=== PATIENT | female | born 1955 | race Caucasian/White ===

== ENCOUNTER 2022-07-18 10:16 | Inpatient (IN) | payer MEDICARE, SELFPAY ==
[2022-07-18] VITALS (22 sets, daily range): BP systolic 162–250; BP diastolic 109–150; PULSE 60–92; RESP 11–22; TEMP 36.6–37.1; O2SAT 95–99; BMI 33.2; BMI 27.1
--- NOTE | 2022-07-18 10:45 | ED.NURSE ---
Patient helped to bathroom. Is only bearing partial weight and is unable to move legs in right direction to make steps. Patient left arm unable to grab on gram bar on first try as patient aims to low. MD notified. Woke with symptoms at 6:45 AM.
--- NOTE | 2022-07-18 11:00 | CRLHL7_ITS ---
For Patients: As a result of the Century Cures Act, medical imaging exams and procedure reports are released immediately into your electronic medical record. You may view this report before your referring provider. If you have questions, please contact your health care provider. INDICATION: Left-sided weakness COMPARISON: None TECHNIQUE: CT examination of the head was performed as axial sections without intravenous contrast. Images were obtained from the vertex of the skull through the skull base. Please note that all CT scans at this facility use dose modulation, iterative reconstruction, and/or weight-based dosing when appropriate to reduce radiation dose to as low as reasonably achievable. FINDINGS: The brain shows no sign of mass lesion, mass effect, hemorrhage, or edema. There are involutional changes. There is moderate cortical atrophy and there is moderate white matter disease. There is no hydrocephalus. The visualized portions of the orbits are normal in appearance. Scattered lytic intra diploic lesions are identified. This could be related to a malignant process such as multiple myeloma. Follow-up evaluation is recommended in the not acute care setting. IMPRESSION: Involutional changes consisting of atrophy and white matter disease. Scattered lytic intra diploic calvarial lesions. This raises the possibility of a malignant process such is multiple myeloma. Follow-up in the nonacute care setting is recommended. From an imaging perspective, these could be further studied by MRI. Please note that all CT scans at this facility use dose modulation, iterative reconstruction, and/or weight-based dosing when appropriate to reduce radiation dose to as low as reasonably achievable. Dictated by Nikolay Vega MD @ 07/18/2022 12:19:56 PM (Electronically Signed)
--- NOTE | 2022-07-18 11:05 | ED_ITS ---
HPI - Neuro Symptoms/Deficit General Chief Complaint: Neuro Symptoms/Altered Deficit Stated Complaint: Left leg,left arm pain,Hypertension Time Seen by Provider: 07/18/22 10:51 History of Present Illness HPI Narrative: This 67-year-old female comes in by ambulance because of left-sided weakness. She states that she felt normal last night when she went to bed. She did get up at about 3 in the morning and states that she had difficulty walking at that time. She was unable to get up and ambulate without help this morning. She does not report a headache. She states that she has not been to a doctor for approximately 35 years. Her significant other present with her states that she was apparently supposed to be on some antihypertensive medicines. The patient states that she does not like to take any medicine. She arrives with significant hypertension and a blood pressure of 241/150. At the time of my visit in her room a few minutes later her systolic blood pressure decreased to 215. Related Data Home Medications Medication Instructions Recorded Confirmed No Known Home Medications 07/18/22 07/18/22 Allergies Allergy/AdvReac Type Severity Reaction Status Date / Time No Known Drug Allergies Allergy Verified 07/18/22 10:39 Review of Systems Status of ROS: Reports: 10 or more systems reviewed and unremarkable except as noted in History and below Narrative: Constitutional: No fevers, no weight gain or loss. Eyes: No discharge. No vision changes. HENT: No congestion, no sore throat, no ear pain. Cardiovascular: No chest pain, no palpitations. Respiratory: No shortness of breath, no wheezes, no cough. Gastrointestinal: No abdominal pain, no vomiting, no diarrhea. Genitourinary: No dysuria, no hematuria. Musculoskeletal: Normal range of motion. Skin: No rashes, no pruritis. Neurological: No dizziness, sensory change, or speech change. Left-sided weakness. Endo/Heme/Allergies: No bruising or bleeding. No polydipsia. Pysch: no suicidality, no anxiety, no insomnia. All other systems reviewed and are negative. [facility] Medical History (Updated 07/18/22 @ 14:07 by Esteban Davis MD) No significant past medical history Surgical History (Updated 07/18/22 @ 12:53 by Mayra Uriarte RN) No significant past surgical history Social History Smoking Status: Never smoker Do you use any of these nicotine containing products: None How often do you have a drink containing alcohol: never How often do you have six or more drinks on one occasion: Never AUDIT-C Alcohol total score: 0 Non-prescribed substance use: denies use Exam Narrative: Exam Narrative: Constitutional: Well-developed, well-nourished, no acute distress. HEENT: Normocephalic, atraumatic. Neck: Normal range of motion. Nontender. Supple. Heart: Regular. No murmurs. Normal rate. Intact distal pulses. Lungs: Clear to auscultation. No chest discomfort. No wheezes, rhonchi, or rales. Abdomen: Normal bowel sounds. Nontender. No rebound tenderness. Genitalia: Deferred. Back: No midline tenderness. Normal range of motion. Extremities: Normal range of motion. No injury. Skin: Intact. No rash. Warm. No erythema or pallor. Neurologic: Alert and oriented. Left-sided facial droop. Tongue deviates to the left. 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 Pronator drift is positive. She is able to raise her right leg from the bed normally but has significant difficulty raising her left leg up. Psychiatric: No suicidality. No anxiety or depression. No insomnia. Nursing notes and vitals signs are reviewed. Const: Vital Signs, click to edit/add: Vital Signs - 24 hr 07/18/22 10:39 07/18/22 10:37 07/18/22 10:45 Temperature 97.9 F Pulse Rate [Pulse Oximeter] 73 86 73 Respiratory Rate 16 14 19 Blood Pressure [Le ft Upper Arm] 241/150 H 232/131 H 215/125 H Pulse Oximetry 96 96 96 Oxygen Delivery Me thod Room Air 07/18/22 11:00 07/18/22 11:25 07/18/22 11:45 Temperature Pulse Rate [Pulse Oximeter] 79 73 Respiratory Rate 19 12 Blood Pressure [Le ft Upper Arm] 197/121 H 197/134 H 224/147 H Pulse Oximetry 96 Oxygen Delivery Me thod Course Vital Signs Vital signs: Initial Vital Signs Pulse Rate 86 07/18/22 10:37 Respiratory Rate 14 07/18/22 10:37 Blood Pressure 232/131 H 07/18/22 10:37 Blood Pressure Mean 164 07/18/22 10:37 Pulse Oximetry 96 07/18/22 10:37 Vital Signs Pulse Rate 86 07/18/22 10:37 Respiratory Rate 14 07/18/22 10:37 Blood Pressure 232/131 H 07/18/22 10:37 Pulse Oximetry 96 07/18/22 10:37 Temperature 97.9 F 07/18/22 10:39 Pulse Rate 73 07/18/22 11:45 Respiratory Rate 12 07/18/22 11:45 Blood Pressure 224/147 H 07/18/22 11:45 Pulse Oximetry 96 07/18/22 11:00 Oxygen Delivery Method 07/18/22 10:39 MDM - Neuro Symptoms/Deficit MDM Narrative Medical decision making narrative: This patient comes in with stroke-like symptoms that began sometime during the night apparently. Her last known well was last evening before going to bed. She arrives with left-sided weakness, pronator drift, her tongue is deviating to the left, and decreased ability to ambulate. An IV was established and labs were drawn. These returned with a remarkable increased level of calcium at 12.5. CT scan of the head without contrast shows some findings that may be suspicious for metastatic condition including multiple myeloma. This patient is outside of the window of time where thrombolytics could be given. I did arrange an MRI of her head for further evaluation. Additionally there is labs pending that can give some more insight. A bed has become available here fortunately. I spoke with Dr. Barreto who is making arrangements for her admission into the hospital for further evaluation and treatment. Lab Data Labs: Lab Results 07/18/22 07/18/22 07/18/22 Range/Units 11:20 11:20 11:30 WBC (4.50-11.00) K/uL RBC (4.00-5.20) m/uL Hgb (12.0-16.0) gm/dL Hct (33.0-51.0) % MCV (80-100) fL MCH (26-34) pg MCHC (32-36) gm/dL RDW Coeff of Christine (11.5-15.5) % Plt Count (140-440) K/uL Neut % (Auto) (42.0-72.0) % Lymph % (Auto) (20-44) % [place] % (Auto) (0.0-11.0) % Eos % (Auto) (0.0-7.0) % Baso % (Auto) (0.0-3.0) % Neut # (Auto) (1.7-7.0) K/uL Lymph # (Auto) (0.90-2.90) K/uL [place] # (Auto) (0.00-0.90) K/UL Eos # (Auto) (0.00-0.50) K/uL Baso # (Auto) (0.00-0.30) K/uL Abs Immat Gran (auto) (0.00-0.30) K/uL INR (0.91-1.10) Sodium (135-149) mmol/L Potassium (3.6-5.1) mmol/L Chloride (96-114) mmol/L Carbon Dioxide (20-32) mmol/L BUN (7-30) mg/dL Creatinine (0.5-1.5) mg/dL Estimated Creat Clear Estimated GFR ml/min Glucose (60-115) mg/dL Calcium (8.4-10.6) mg/dL Total Bilirubin (0.1-1.5) mg/dL Direct Bilirubin (0.0-0.5) mg/dL AST (12-35) U/L ALT (4-35) U/L Alkaline Phosphatase (40-150) U/L Total Protein (6.0-8.3) g/dL Albumin (3.3-5.0) g/dL Urine Color Yellow (Yellow) Urine Appearance Clear (Clear) Urine pH 8.0 (5.0-8.5) Ur Specific [place] 1.015 (1.000-1.030) Urine Protein Negative (Negative) Urine Glucose (UA) Negative (Negative) Urine Ketones Negative (Negative) Urine Blood Negative (Negative) Urine Nitrite Negative (Negative) Urine Bilirubin Negative (Negative) Urine Urobilinogen 0.2 (0.2-1.0) Ur Leukocyte Esterase Negative (Negative) Urine RBC Cancelled Urine WBC Cancelled Urine WBC Clumps Cancelled Ur Squamous Epith Cells Cancelled [place] Biurate Crystals Cancelled Calcium Carbonate Cryst Cancelled Calcium Phosphate Cryst Cancelled Calcium Oxalate Crystal Cancelled Cystine Crystals Cancelled Uric Acid Crystals Cancelled Triple Phos Crystals Cancelled Sulfur Crystals Cancelled Cholesterol Crystals Cancelled Tyrosine Crystals Cancelled Hippuric Acid Crystals Cancelled Amorphous Sediment Cancelled Other Sediment Cancelled Urine Bacteria Cancelled Fatty Casts Cancelled Hyaline Casts Cancelled Fine Granular Casts Cancelled Coarse Granular Casts Cancelled Waxy Casts Cancelled RBC Casts Cancelled WBC Casts Cancelled Other Casts Cancelled Urine Starch Cancelled Urine Mucus Cancelled Urine Trichomonas Cancelled Urine Yeast Cancelled SARS-CoV-2 (PCR) Negative SARS-CoV-2 (Negative) 07/18/22 07/18/22 07/18/22 Range/Units 11:34 11:34 11:34 WBC 6.69 (4.50-11.00) K/uL RBC 5.05 (4.00-5.20) m/uL Hgb 13.1 (12.0-16.0) gm/dL Hct 41.2 (33.0-51.0) % MCV 82 (80-100) fL MCH 26 (26-34) pg MCHC 32 (32-36) gm/dL RDW Coeff of Christine 14.8 (11.5-15.5) % Plt Count 280 (140-440) K/uL Neut % (Auto) 79.6 H (42.0-72.0) % Lymph % (Auto) 13.8 L (20-44) % [place] % (Auto) 5.4 (0.0-11.0) % Eos % (Auto) 0.4 (0.0-7.0) % Baso % (Auto) 0.7 (0.0-3.0) % Neut # (Auto) 5.30 (1.7-7.0) K/uL Lymph # (Auto) 0.90 (0.90-2.90) K/uL [place] # (Auto) 0.40 (0.00-0.90) K/UL Eos # (Auto) 0.03 (0.00-0.50) K/uL Baso # (Auto) 0.05 (0.00-0.30) K/uL Abs Immat Gran (auto) 0.01 (0.00-0.30) K/uL INR 0.92 (0.91-1.10) Sodium 139 (135-149) mmol/L Potassium 3.8 (3.6-5.1) mmol/L Chloride 105 (96-114) mmol/L Carbon Dioxide 25 (20-32) mmol/L BUN 12 (7-30) mg/dL Creatinine 1.1 (0.5-1.5) mg/dL Estimated Creat Clear 35.65 Estimated GFR 55 ml/min Glucose 106 (60-115) mg/dL Calcium 12.5 H* (8.4-10.6) mg/dL Total Bilirubin 0.8 (0.1-1.5) mg/dL Direct Bilirubin 0.2 (0.0-0.5) mg/dL AST 61 H (12-35) U/L ALT 53 H (4-35) U/L Alkaline Phosphatase 218 H (40-150) U/L Total Protein 8.4 H (6.0-8.3) g/dL Albumin 4.8 (3.3-5.0) g/dL Urine Color (Yellow) Urine Appearance (Clear) Urine pH (5.0-8.5) Ur Specific [place] (1.000-1.030) Urine Protein (Negative) Urine Glucose (UA) (Negative) Urine Ketones (Negative) Urine Blood (Negative) Urine Nitrite (Negative) Urine Bilirubin (Negative) Urine Urobilinogen (0.2-1.0) Ur Leukocyte Esterase (Negative) Urine RBC Urine WBC Urine WBC Clumps Ur Squamous Epith Cells [place] Biurate Crystals Calcium Carbonate Cryst Calcium Phosphate Cryst Calcium Oxalate Crystal Cystine Crystals Uric Acid Crystals Triple Phos Crystals Sulfur Crystals Cholesterol Crystals Tyrosine Crystals Hippuric Acid Crystals Amorphous Sediment Other Sediment Urine Bacteria Fatty Casts Hyaline Casts Fine Granular Casts Coarse Granular Casts Waxy Casts RBC Casts WBC Casts Other Casts Urine Starch Urine Mucus Urine Trichomonas Urine Yeast SARS-CoV-2 (PCR) (Negative) Imaging Data CT scan - head: Radiologist's impression: Involutional changes consisting of atrophy and white matter disease. Scattered lytic intra diploic calvarial lesions. This raises the possibility of a malignant process such is multiple myeloma. Follow-up in the nonacute care setting is recommended. From an imaging perspective, these could be further studied by MRI. Critical Care Time Critical Care Time Critical Care Time: Yes Attestation: The patient required my highest level preparedness to intervene emergently and I personally spent this critical care time directly and personally managing the patient. This critical care time included: Obtaining a history; Examining the patient; Pulse oximetry; Ordering and reviewing of studies; Arranging urgent treatment with development of a management plan; Evaluation of patients response to treatment; Frequent reassessment discussions with other providers. This critical care time was performed to assess and manage the high probability of imminent life-threatening deterioration that could result in multiorgan failure. It was exclusive of separate billable procedures and treating other patients and teaching time. Total Critical Care Time in Minutes: 45 Discharge Plan Discharge Clinical Impression: Cerebrovascular accident, Serum calcium elevated Patient Disposition: Admitted As Inpatient Condition: Unchanged Prescriptions: No Action No Known Home Medications Follow Up/Referrals: Provider,Not a Local [Primary Care Provider] -
[2022-07-18 11:53] LABS: Basophils Absolute Auto 0.05 K/uL (0.00-0.30); Basophils Percent Auto 0.7 % (0.0-3.0); Eosinophils Absolute Auto 0.03 K/uL (0.00-0.50); Eosinophils Percent Auto 0.4 % (0.0-7.0); Hematocrit 41.2 % (33.0-51.0); Hemoglobin* 13.1 gm/dL (12.0-16.0); Immature Granulocytes Abs Auto 0.01 K/uL (0.00-0.30); Lymphocytes Percent Auto 13.8 % (20-44); Mean Corpuscular HGB Conc 32 gm/dL (32-36); Mean Corpuscular Hemoglobin 26 pg (26-34); Mean Corpuscular Volume 82 fL (80-100); Monocytes Percent Auto 5.4 % (0.0-11.0); Neutrophils Percent Auto 79.6 % (42.0-72.0); Platelet Count* 280 K/uL (140-440); RDW Coefficient of Variation % 14.8 % (11.5-15.5); Red Blood Count 5.05 m/uL (4.00-5.20); White Blood Count* 6.69 K/uL (4.50-11.00)
[2022-07-18 11:55] LABS: Appearance Urine Clear (Clear); Bilirubin Urine Negative (Negative); Blood Urine Negative (Negative); Color Urine Yellow (Yellow); Glucose Urine Negative (Negative); Ketones Urine Negative (Negative); Leukocyte Esterase Urine Negative (Negative); Nitrite Urine Negative (Negative); Protein Urine Negative (Negative); Specific Gravity Urine 1.015 (1.000-1.030); Urobilinogen Urine 0.2 (0.2-1.0)
[2022-07-18 11:58] LABS: Slide Review Reflex No
[2022-07-18 12:10] LABS: Albumin* 4.8 g/dL (3.3-5.0); Chloride* 105 mmol/L (96-114); Potassium* 3.8 mmol/L (3.6-5.1); Sodium* 139 mmol/L (135-149)
[2022-07-18 12:11] LABS: INR 0.92 (0.91-1.10); Prothrombin Time 12.7 Seconds
[2022-07-18 12:12] LABS: Creatinine* 1.1 mg/dL (0.5-1.5); Est. Creatinine Clearance* 35.65; Estimated Glomerular Filt Rate 55 ml/min
[2022-07-18 12:13] LABS: Alanine Aminotransferase* 53 U/L (4-35); Alkaline Phosphatase* 218 U/L (40-150); Aspartate Amino Transferase* 61 U/L (12-35); Bilirubin Direct* 0.2 mg/dL (0.0-0.5); Bilirubin Total* 0.8 mg/dL (0.1-1.5); Blood Urea Nitrogen* 12 mg/dL (7-30); Carbon Dioxide* 25 mmol/L (20-32); Glucose* 106 mg/dL (60-115); Total Protein* 8.4 g/dL (6.0-8.3)
[2022-07-18 12:23] LABS: Calcium* 12.5 mg/dL (8.4-10.6)
[2022-07-18 12:25] LABS: SARS PCR* Negative SARS-CoV-2 (Negative)
--- NOTE | 2022-07-18 12:41 | ED.NURSE ---
Critical lab: Calcium 12.5 handed to at 1237
--- NOTE | 2022-07-18 12:50 | CRLHL7_ITS ---
For Patients: As a result of the Century Cures Act, medical imaging exams and procedure reports are released immediately into your electronic medical record. You may view this report before your referring provider. If you have questions, please contact your health care provider. Indication: Left hemiparesis. Technique: Multiplanar, multisequence MRI of the brain was performed without and with intravenous contrast. Contrast: 15 cc Dotarem Comparison: CT head earlier the same day Findings: [id number] thinning of the corpus callosum. The pituitary gland and carpus appear intact. Mild degenerative change visualized upper cervical spine. There is a 13 mm zone of restricted diffusion identified within the right thalamus. There is slight T2 FLAIR hyperintensity in this region. The ventricles are proportionate to the cerebral sulci. The 4th ventricle appears midline. The basal cisterns appear patent. No abnormal extra-axial fluid collection identified. Moderate parenchymal volume loss. Moderate T2 FLAIR hyperintense foci within the subcortical and periventricular white matter, favored to represent chronic ischemic microvascular disease. There is no intracranial mass, abnormal mass-effect or midline shift identified. No abnormal enhancement. Major intracranial vascular flow voids appear grossly intact. Both globes are preserved. Subtle visualization of enhancing calvarial lesions corresponding to the lytic foci noted on prior CT of the head. Impression: 1. Hyperacute to acute right thalamic infarct. 2. Enhancement corresponding to lytic lesions identified on CT of the head. Overall features are concerning for malignant process such as multiple myeloma versus calvarial metastases. 3. Moderate chronic ischemic microvascular disease. The above findings were communicated over the telephone with Dr. Esteban Davis by Dr. Alejandro at 1533 hours on 07/18/2022. Dictated by Akbar Alejandro MD @ 07/18/2022 3:42:13 PM (Electronically Signed)
--- NOTE | 2022-07-18 13:59 | P.IMHP_ITS ---
Hospitalist- H&P: HPI History of Present Illness Date Seen: 07/18/22 Chief complaint: Left leg,left arm pain,Hypertension Narrative: Sharon Hallman is a 67 year old female who presented to the ER with her for L sided weakness. She woke up around 6:45 this morning and couldn't move her L leg. She was able to get up, then noted that her L arm was also weak. She had no other associated symptoms. Given weakness, she called her home from work, who noted that she also had a L facial droop and brought her to the ED. Last known well was when going to bed overnight. ER Course and Findings: - Abnormal CT of head with scattered lytic intra diploic calvarial lesions - Hypercalcemia - Elevated AST/ALT/Alk phojalil Herrera hasn't seen a physician since the of her last child in 1984. She takes a multivitamin and a B Complex. She is unaware of her baseline BP. Mother from COPD, also had HTN. One of Sharon's daughters has HTN. Lives independently with Yoandy (medical decision maker if needed) in [place]. Three adult children. 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 Nonsmoker, no ETOH use. Review of Systems Status of ROS: Reports: 10 or more systems reviewed and unremarkable except as noted in History and below Narrative: Mild headache today. No CP, no dyspnea, no rashes or other skin concerns. No GI or complaints. Intermittent low back pain without sciatica, not constant and not severe. Has one raised mole on R labia, one on abdomen. [facility] Medical History (Updated 07/18/22 @ 20:40 by Felicia Barreto MD) No significant past medical history Surgical History (Updated 07/18/22 @ 12:53 by Mayra Uriarte RN) No significant past surgical history Social History Highest level of school completed/degree received: some college, no degree Smoking Status: Never smoker Do you use any of these nicotine containing products: None How often do you have a drink containing alcohol: never How often do you have six or more drinks on one occasion: Never AUDIT-C Alcohol total score: 0 Non-prescribed substance use: denies use Caffeine: Yes (tea) service: No Meds Home Medications and Allergies Home Medications Medication Instructions Recorded Confirmed Type vbuanmdnoajh-fxkwreee-znabte 1 tab PO DAILY 07/18/22 07/18/22 History tablet (Multivitamin 50 Plus tablet) vitamin B complex (Vitamins B 1 tab PO DAILY 07/18/22 07/18/22 History Complex tablet) Home Medication Comments: Patient takes an OTC Vitamin Complex for women over 50, and a B complex Allergies Allergy/AdvReac Type Severity Reaction Status Date / Time No Known Drug Allergies Allergy Verified 07/18/22 16:33 Exam Narrative: Exam Narrative: GEN: Alert and oriented, no significant dysarthria HEENT: Normal external ears, EOMIs bilaterally, no scleral icterus CV: RRR, No concerning murmurs, rubs, or gallops R: LCTA bilaterally without concerning wheezing, rales, or rhonchi Ext: wwp, no concerning edema Skin: Raised, hyperpigmented lesion on R labia, approximately 1cm in greatest diameter. Smaller lesion on abdomen (raised, waxy) measuring approximately 8mm. No skin lesions on back Neuro: L-sided facial droop, weakness LUE and LLE but able to move both. + L sided pronator drift. Psych: Appropriate Const: Vital Signs, click to edit/add: Vital Signs - 24 hr 07/18/22 10:39 07/18/22 10:37 07/18/22 10:45 Temperature 97.9 F Pulse Rate [Pulse Oximeter] 73 86 73 Respiratory Rate 16 14 19 Blood Pressure [Le ft Upper Arm] 241/150 H 232/131 H 215/125 H Pulse Oximetry 96 96 96 Oxygen Delivery Me thod Room Air 07/18/22 11:00 07/18/22 11:25 07/18/22 11:45 Temperature Pulse Rate [Pulse Oximeter] 79 73 Respiratory Rate 19 12 Blood Pressure [Le ft Upper Arm] 197/121 H 197/134 H 224/147 H Pulse Oximetry 96 Oxygen Delivery Me thod Hospitalist - H&P: Result Labs Labs: Short CBC 07/18/22 Range/Units 11:34 WBC 6.69 (4.50-11.00) K/uL Hgb 13.1 (12.0-16.0) gm/dL Hct 41.2 (33.0-51.0) % Plt Count 280 (140-440) K/uL BMP 07/18/22 11:34 Sodium 139 Potassium 3.8 Chloride 105 Carbon Dioxide 25 BUN 12 Creatinine 1.1 Glucose 106 Calcium 12.5 H* Liver Function 07/18/22 Range/Units 11:34 Total Bilirubin 0.8 (0.1-1.5) mg/dL Direct Bilirubin 0.2 (0.0-0.5) mg/dL AST 61 H (12-35) U/L ALT 53 H (4-35) U/L Alkaline Phosphatase 218 H (40-150) U/L Albumin 4.8 (3.3-5.0) g/dL Urine 07/18/22 Range/Units 11:20 Urine Color Yellow (Yellow) Urine Appearance Clear (Clear) Urine pH 8.0 (5.0-8.5) Ur Specific [place] 1.015 (1.000-1.030) Urine Protein Negative (Negative) Urine Glucose (UA) Negative (Negative) cc: Esteban Davis M.D.; Provider,Not a Local ~ For Patients:? As a result of the Cures Act, medical imaging exams and procedure reports are released immediately into your electronic medical record.? You may view this report before your referring provider.? If you have questions, please contact your health care provider. INDICATION: Left-sided weakness COMPARISON: None TECHNIQUE: CT examination of the head was performed as axial sections without intravenous contrast. Images were obtained from the vertex of the skull through the skull base. Please note that all CT scans at this facility use dose modulation, iterative reconstruction, and/or weight-based dosing when appropriate to reduce radiation dose to as low as reasonably achievable. FINDINGS: The brain shows no sign of mass lesion, mass effect, hemorrhage, or edema. There are involutional changes. There is moderate cortical atrophy and there is moderate white matter disease. There is no hydrocephalus. The visualized portions of the orbits are normal in appearance. Scattered lytic intra diploic lesions are identified. This could be related to a malignant process such as multiple myeloma. Follow-up evaluation is recommended in the not acute care setting. IMPRESSION: Involutional changes consisting of atrophy and white matter disease. Scattered lytic intra diploic calvarial lesions. This raises the possibility of a malignant process such is multiple myeloma. Follow-up in the nonacute care setting is recommended. From an imaging perspective, these could be further studied by MRI. Please note that all CT scans at this facility use dose modulation, iterative reconstruction, and/or weight-based dosing when appropriate to reduce radiation dose to as low as reasonably achievable. Dictated by Nikolay Vega MD @ 07/18/2022 12:19:56 PM Indication: Left hemiparesis. Technique: Multiplanar, multisequence MRI of the brain was performed without and with intravenous contrast. Contrast: 15 cc Dotarem Comparison: CT head earlier the same day Findings: Ymxz-us-alozjvbk thinning of the corpus callosum. The pituitary gland and carpus appear intact. Mild degenerative change visualized upper cervical spine. There is a 13 mm zone of restricted diffusion identified within the right thalamus. There is slight T2 FLAIR hyperintensity in this region. The ventricles are proportionate to the cerebral sulci. The 4th ventricle appears midline. The basal cisterns appear patent. No abnormal extra-axial fluid collection identified. Moderate parenchymal volume loss. Moderate T2 FLAIR hyperintense foci within the subcortical and periventricular white matter, favored to represent chronic ischemic microvascular disease. There is no intracranial mass, abnormal mass-effect or midline shift identified. No abnormal enhancement. Major intracranial vascular flow voids appear grossly intact. Both globes are preserved. Subtle visualization of enhancing calvarial lesions corresponding to the lytic foci noted on prior CT of the head. Impression: 1. Hyperacute to acute right thalamic infarct. 2. Enhancement corresponding to lytic lesions identified on CT of the head. Overall features are concerning for malignant process such as multiple myeloma versus calvarial metastases. 3. Moderate chronic ischemic microvascular disease. The above findings were communicated over the telephone with Dr. Esteban Davis by Dr. Alejandro at 1533 hours on 07/18/2022. Dictated by Akbar Alejandro MD @ 07/18/2022 3:42:13 PM Assessment and Plan Assessment and plan (1) Cerebrovascular accident: Problem comment: Reviewed case with Dr. Sánchez ([facility]) on 07/18 who recommends 3 weeks of dual antiplatelet therapy with Plavix and 81 mg aspirin, followed by 81mg daily aspirin alone. Status: Acute Assessment and Plan: Patient amenable to dual antiplatelet therapy as recommended by neurologist. She is also willing to trial a statin during her stay. We will allow permissive hypertension, treat blood pressures> 180 systolic. TTE tomorrow. (2) Thalamic infarction: Status: Acute Assessment and Plan: Per above (3) Hypercalcemia: Status: Acute Assessment and Plan: Concerning for underlying malignancy or (less likely) another chronic disease process. (4) Metastatic cancer: Problem comment: Unknown primary (multiple myeloma vs melanoma vs renal source), MRI of abdomen recommended by radiologist based on findings from 07/17 CT Status: Acute Assessment and Plan: MRI ordered to better evaluate renal lesion and bony metastases. Sharon understands the need for close PCP follow-up given her new CVA and likely diagnosis of metastatic cancer. She would like to establish care at [facility] and [facility]. Plan - per above - requests full code status, although does not want to be artificially ventilated for an extended period of time
--- NOTE | 2022-07-18 16:01 | CRLHL7_ITS ---
For Patients: As a result of the 21st Century Cures Act, medical imaging exams and procedure reports are released immediately into your electronic medical record. You may view this report before your referring provider. If you have questions, please contact your health care provider. INDICATION: Metastatic disease, evaluate for primary. TECHNIQUE: CT chest, abdomen, and pelvis acquired with 84 mL Isovue 370 contrast. COMPARISON: CT head earlier same day. FINDINGS: CHEST: Lungs and pleura: 0.3 cm subpleural nodule in the right middle lobe (series 3, image 55). 1.1 cm pulmonary nodule in the left lower lobe (series 3, image 64). 0.4 cm subpleural nodule in the left lower lobe (series 3, image 65). Few additional scattered subcentimeter pulmonary nodules. Heart and vessels: No cardiomegaly, no pericardial effusion. Thyroid and lower neck: No suspicious thyroid nodule. Mediastinum/wallace: No lymphadenopathy. Chest wall: No axillary lymphadenopathy. ABDOMEN/PELVIS: Liver: No suspicious focal hepatic lesion. Gallbladder and bile ducts: Cholelithiasis. Pancreas: Mild fatty atrophy. No suspicious mass identified. Spleen: Unremarkable. Adrenal glands: 0.6 cm nodule extending from the lateral limb of the left adrenal gland, too small to characterize. Unremarkable appearance of the right adrenal gland. Kidneys: Kidneys enhance symmetrically, without hydronephrosis. Too small to characterize hypodense bilateral renal lesions. There is an indeterminate exophytic 2.5 cm lesion extending from the lateral interpolar region of the right kidney. Retroperitoneum: No lymphadenopathy. Bowel and mesentery: Bowel is nonobstructed. Scattered colonic diverticulosis, without evidence of acute diverticulitis. No large colonic mass identified. No significant ascites. No pneumoperitoneum. Bladder: Unremarkable for degree of distension. Reproductive organs: Unremarkable. No abnormal adnexal mass. Pelvic lymph nodes: No lymphadenopathy. Vessels: Unremarkable. Abdominal wall: No acute abdominal wall abnormality. Indeterminate cutaneous lesion near the right labia majora measuring 1.5 cm (series 2, image 222). Bones: Diffuse mottled appearance of the bone marrow, worrisome for infiltrative neoplastic process. Differential includes diffuse osteopenia. Multiple lytic lesions throughout several thoracolumbar vertebral bodies, which may reflect hemangiomas. IMPRESSION: 1. Indeterminate exophytic 2.5 cm lesion extending from the lateral interpolar region of the right kidney. Further evaluation with renal protocol MRI is recommended. 2. Diffuse mottled appearance of the bone marrow, is worrisome for infiltrative neoplastic process. Differential includes diffuse osteopenia. The MRI would also be helpful in differentiating. 3. Scattered pulmonary nodules measuring up to 1.1 cm in the left lower lobe, worrisome for metastases. 4. Indeterminate cutaneous lesion near the right labia majora measures 1.5 cm. Recommend clinical correlation with direct visualization. 5. Indeterminate subcentimeter nodule at the lateral limb of the left adrenal gland. Please note that all CT scans at this facility use dose modulation, iterative reconstruction, and/or weight-based dosing when appropriate to reduce radiation dose to as low as reasonably achievable. Dictated by Mila Jordan MD @ 07/18/2022 5:52:43 PM (Electronically Signed)
--- NOTE | 2022-07-18 16:16 | ED.NURSE ---
Patient's BP 250/150. Patient's symptoms of left sided weakness and uncoordination seem to have progressed. Patient making confused statement. Concerns brought to ED and floor MD.
--- NOTE | 2022-07-18 17:22 | ED.NURSE ---
Pt assisted to commode. Pt able to stand and turn to commode with assist of 2. Pt shaky and unsteady, somewhat impulsive. EMS IV tubing was leaking blood, tubing replaced with new hub. IV patent and flushes well.
--- NOTE | 2022-07-18 17:32 | ED.NURSE ---
Report given to med/surg. Patient will transfer to room 245.
[2022-07-18] MEDS: 0.9 % SODIUM CHLORIDE 1000 ml 1,000 ML 75 ML IV (21:47)
--- NOTE | 2022-07-18 23:02 | PC.NURSE ---
[id number]: Patient brought to unit at 1800. L. sided weakness d/t stoke along with L. sided facial droop. A&O x3. Flat affect w/delayed speech pattern. EZ stand for BR needs. Tolerates well. Denies pain. Uses call light appropriately.
[2022-07-19] VITALS (8 sets, daily range): BP systolic 146–212; BP diastolic 34–125; PULSE 62–77; RESP 16–20; TEMP 36.8–37.5; O2SAT 92–96
[2022-07-19] MEDS: LABETALOL HCL 5 MG/ML inj IVP ×3 (00:41→11:56)
[2022-07-19] MEDS: ACETAMINOPHEN 325 MG TABLET 650 MG PO (02:12)
[2022-07-19 06:47] LABS: Basophils Absolute Auto 0.03 K/uL (0.00-0.30); Basophils Percent Auto 0.4 % (0.0-3.0); Eosinophils Absolute Auto 0.03 K/uL (0.00-0.50); Eosinophils Percent Auto 0.4 % (0.0-7.0); Hematocrit 36.6 % (33.0-51.0); Hemoglobin* 11.7 gm/dL (12.0-16.0); Immature Granulocytes Abs Auto 0.04 K/uL (0.00-0.30); Mean Corpuscular HGB Conc 32 gm/dL (32-36); Mean Corpuscular Hemoglobin 26 pg (26-34); Mean Corpuscular Volume 82 fL (80-100); Monocytes Percent Auto 9.8 % (0.0-11.0); Neutrophils Percent Auto 72.8 % (42.0-72.0); Platelet Count* 261 K/uL (140-440); RDW Coefficient of Variation % 15.3 % (11.5-15.5); Red Blood Count 4.49 m/uL (4.00-5.20); White Blood Count* 6.87 K/uL (4.50-11.00)
[2022-07-19 06:50] LABS: Slide Review Reflex No
[2022-07-19 07:05] LABS: Chloride* 106 mmol/L (96-114); Sodium* 139 mmol/L (135-149)
[2022-07-19 07:08] LABS: Bilirubin Total* 0.9 mg/dL (0.1-1.5); Carbon Dioxide* 24 mmol/L (20-32); Cholesterol* 192 mg/dL (90-199); Creatinine* 1.1 mg/dL (0.5-1.5); Est. Creatinine Clearance* 41.05; Estimated Glomerular Filt Rate 55 ml/min
[2022-07-19 07:09] LABS: Alanine Aminotransferase* 41 U/L (4-35); Alkaline Phosphatase* 164 U/L (40-150); Aspartate Amino Transferase* 46 U/L (12-35); Blood Urea Nitrogen* 12 mg/dL (7-30); Glucose* 111 mg/dL (60-115); Triglycerides* 140 mg/dL (40-149)
[2022-07-19 07:10] LABS: HDL Cholesterol* 45 mg/dL (>=50); LDL Cholesterol Calculated 119 mg/dL (<100)
[2022-07-19 07:16] LABS: Calcium* 12.2 mg/dL (8.4-10.6)
[2022-07-19 07:33] LABS: Hemoglobin A1C* 5.49 % (0-5.6)
--- NOTE | 2022-07-19 07:37 | PC.NURSE ---
Shift Note : Pt pleasant and cooperative. Pt up with Ez-Stand to BR. Tele shows NSR. 2 episodes of elevated BP, see eMAR for medication administration. Pt had a few episodes of delayed responses with significant left sided weakness. Pt is A&O x3 and uses the call light appropriately as well as communicates her needs effectively.
[2022-07-19] MEDS: HYDRALAZINE HCL 20 MG/ML inj 10 MG IVP (08:46)
[2022-07-19] MEDS: ZOLEDRONIC ACID 4 MG in 0.9 % SODIUM CHLORIDE 100 ml 100 ML 420 MG IVPB (08:46)
[2022-07-19] MEDS: CLOPIDOGREL 75 MG TABLET PO (08:47)
[2022-07-19] MEDS: ASPIRIN 81 MG TAB.CHEW PO (08:47)
[2022-07-19] MEDS: 0.9 % SODIUM CHLORIDE 1000 ml 1,000 ML 75 ML IV (08:52)
[2022-07-19] MEDS: PROCHLORPERAZINE 5 MG/ML VIAL IV (10:39)
[2022-07-19] MEDS: LACTATED RINGERS 1000 ML 500 ML IV (13:49)
--- NOTE | 2022-07-19 14:43 | P.IMPN_ITS ---
Progress Note: A&P Assessment and plan (1) Cerebrovascular accident: Problem details: Admit team reviewed case with Dr. Sánchez ([facility]rology) on 07/18 who recommends 3 weeks of dual antiplatelet therapy with Plavix and 81 mg aspirin, followed by 81mg daily aspirin alone. Dual anti-platelet therapy started this morning. PT and OT Permissive hypertension switching to oral verses IV management. Status: Acute (2) Thalamic infarction: Problem details: PT/OT as an inpatient. Depending on rate of recovery we need to decide on acute rehab verses home health versus outpatient Status: Acute (3) Metastatic cancer: Problem details: Unknown primary (multiple myeloma vs melanoma vs renal source), MRI of abdomen recommended by radiologist based on findings from 07/17 CT Status: Acute (4) Hypercalcemia: Problem details: Zoledronic acid 07/19/2022 Status: Acute Subjective Date Seen: 07/19/22 Interval history: Daily Progress Note - Hospital Medicine Day #: 2 CC: s/p right thalamic stroke; new metastatic cancer identified. OVERNIGHT UPDATES FROM STAFF & MED, LAB, IMAGING UPDATES Patient's strength is already improving. Coordination is already improving. Her biggest issue is control of her left upper extremity, leaning to the left, left facial droop. Permissive hypertension is appropriate 186/104 at 11:00 a.m. today. Blood pressure 186/104, 201/34, 146/82 Labetalol last given 5 mg (to be given with systolics greater than 180) at noon, hydralazine (for systolics greater than 200) last given at 0 8 The hemoglobin dropped a little 13.1-11.7, not unexpectedly INR normal Calcium elevated 12.5 and 12.2 again not unexpectedly for bone Mets. LFTs elevated, alk phos greater than 200 initially Findings concerning for metastatic carcinoma 2.5 cm lesion right kidney Bone marrow abnl Pulmonary nodules - metastatic 1.5 cm labia majora cutaneous lesion Nodule left adrenal gland Lytic lesions noted in the calvarium, hyper acute right thalamic infarct, chronic microvascular disease Review of Systems: See subjective Cardiac: No new chest pain/pressure/palpitations. Respiratory: no new dyspnea. GI: No abdominal bloating Objective: Lying flat. Flat affect as well. Answers questions. Understands that she has had a stroke and is in the [facility]. She also acknowledges that she understand she has cancer. Vitals: see above Lungs: Clear. Cardiac: S1S2. Neuro: Left-sided deficits to include left upper extremity it is difficult for her to complete the task of finger to nose. 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 Left-sided facial droop. Weakness in the left lower extremity. She has a 2 person assist but this is improved over several hours as PT reports that he was a 1 person assist with a heavy left lean. Disposition/Potential discharge - Likely to return to previous living situation versus short-term rehab depending on read of recovery. Total time is 35 minutes with greater than 50% spent in counseling and coordination of care. Exam Const: Vital Signs, click to edit/add: Vital Signs - 24 hr 07/18/22 15:55 07/18/22 16:55 07/18/22 18:47 Temperature 97.9 F Pulse Rate Pulse Rate [Left P ulse Oximeter] Pulse Rate [Pulse Oximeter] 90 73 Respiratory Rate 22 18 18 Blood Pressure [Le ft Upper Arm] 250/150 H 204/128 H Blood Pressure [Ri ght Arm] Pulse Oximetry [address] [facility] 07/18/22 18:52 07/18/22 19:13 07/18/22 22:00 Temperature 98.7 F Pulse Rate 87 Pulse Rate [Left P ulse Oximeter] 75 Pulse Rate [Pulse Oximeter] Respiratory Rate 18 18 Blood Pressure [Le ft Upper Arm] Blood Pressure [Ri ght Arm] 162/115 H Pulse Oximetry [address] [facility] Room Air 07/18/22 23:00 07/18/22 23:50 07/19/22 02:17 Temperature 98.3 F Pulse Rate Pulse Rate [Left P ulse Oximeter] 75 92 77 Pulse Rate [Pulse Oximeter] Respiratory Rate 16 16 16 Blood Pressure [Le ft Upper Arm] Blood Pressure [Ri ght Arm] 187/125 H 212/125 H Pulse Oximetry [address] [facility] Room Air 07/18/22 23:00 07/19/22 03:54 07/19/22 07:00 Temperature 99.2 F Pulse Rate 60 Pulse Rate [Left P ulse Oximeter] 72 73 Pulse Rate [Pulse Oximeter] Respiratory Rate 20 18 Blood Pressure [Le ft Upper Arm] Blood Pressure [Ri ght Arm] 146/82 H 201/34 H Pulse Oximetry 93 95 Oxygen Delivery Me thod Room Air Room Air 07/19/22 07:00 07/19/22 07:00 07/19/22 11:00 Temperature 99.0 F Pulse Rate 62 Pulse Rate [Left P ulse Oximeter] 73 70 Pulse Rate [Pulse Oximeter] Respiratory Rate 18 18 Blood Pressure [Le ft Upper Arm] Blood Pressure [Ri ght Arm] 186/104 H Pulse Oximetry 96 Oxygen Delivery Me thod Room Air Labs Labs: Laboratory Results - last 24 hr 07/19/22 07/19/22 07/19/22 04:00 04:27 04:27 WBC RBC Hgb Hct MCV MCH MCHC RDW Coeff of Christine Plt Count Neut % (Auto) Lymph % (Auto) [place] % (Auto) Eos % (Auto) Baso % (Auto) Neut # (Auto) Lymph # (Auto) [place] # (Auto) Eos # (Auto) Baso # (Auto) Abs Immat Gran (auto) Sodium 139 Potassium 4.0 Chloride 106 Carbon Dioxide 24 BUN 12 Creatinine 1.1 Estimated Creat Clear 41.05 Estimated GFR 55 Glucose 111 Hemoglobin A1c 5.49 Calcium 12.2 H* Total Bilirubin 0.9 AST 46 H ALT 41 H Alkaline Phosphatase 164 H Total Protein 7.0 Albumin 4.0 Triglycerides 140 Cholesterol 192 LDL Cholesterol, Calc 119 H HDL Cholesterol 45 L TSH 2.960 07/19/22 05:46 WBC 6.87 RBC 4.49 Hgb 11.7 L Hct 36.6 MCV 82 MCH 26 MCHC 32 RDW Coeff of Christine 15.3 Plt Count 261 Neut % (Auto) 72.8 H Lymph % (Auto) 16.0 L [place] % (Auto) 9.8 Eos % (Auto) 0.4 Baso % (Auto) 0.4 Neut # (Auto) 5.00 Lymph # (Auto) 1.10 [place] # (Auto) 0.70 Eos # (Auto) 0.03 Baso # (Auto) 0.03 Abs Immat Gran (auto) 0.04 Sodium Potassium Chloride Carbon Dioxide BUN Creatinine Estimated Creat Clear Estimated GFR Glucose Hemoglobin A1c Calcium Total Bilirubin AST ALT Alkaline Phosphatase Total Protein Albumin Triglycerides Cholesterol LDL Cholesterol, Calc HDL Cholesterol TSH
[2022-07-19] MEDS: LABETALOL HCL 100 MG TABLET PO ×2 (15:30→20:49)
--- NOTE | 2022-07-19 19:28 | PC.NURSE ---
Saline locked 1730. pt up to void q1-2h about 200 cc each void of straw urine. nausea this AM with emesis, meds given for this see emar. few bites of each meal tray, tolerating fluids well. Spouse at bedside. L side weakness, pt has sponge from OT for left hand and PT in to work with her today. Bp's continue to be high, MD aware. see emar for PRN meds given.
[2022-07-20] VITALS (9 sets, daily range): BP systolic 123–207; BP diastolic 73–133; PULSE 68–96; RESP 16–18; TEMP 37–38.1; O2SAT 93–97
[2022-07-20] MEDS: HYDRALAZINE HCL 20 MG/ML inj 10 MG IVP (03:20)
--- NOTE | 2022-07-20 05:11 | PC.NURSE ---
Shift Note 19-07: Pt pleasant and cooperative, BP remains elevated, Tele shows NSR. Hydralazine 10mg IVP administered after 0300 vitals check for BP of 207/133, BP check 30 min later reading 178/126, pt denies pain, dizziness, headache or nausea. Pt actively participates in assisting with ADLs and transfers using the Ez-Stand. Pt uses call light appropriately and is able to communicate needs effectively. See eMAR for medication administration.
[2022-07-20 07:03] LABS: Ionized Calcium* 1.48 mmol/L (1.11-1.30)
[2022-07-20 07:27] LABS: Basophils Absolute Auto 0.04 K/uL (0.00-0.30); Basophils Percent Auto 0.5 % (0.0-3.0); Eosinophils Absolute Auto 0.02 K/uL (0.00-0.50); Eosinophils Percent Auto 0.2 % (0.0-7.0); Hemoglobin* 11.7 gm/dL (12.0-16.0); Immature Granulocytes Abs Auto 0.13 K/uL (0.00-0.30); Lymphocytes Percent Auto 5.2 % (20-44); Mean Corpuscular HGB Conc 33 gm/dL (32-36); Mean Corpuscular Hemoglobin 26 pg (26-34); Mean Corpuscular Volume 81 fL (80-100); Monocytes Percent Auto 6.4 % (0.0-11.0); Neutrophils Percent Auto 86.1 % (42.0-72.0); Platelet Count* 243 K/uL (140-440); RDW Coefficient of Variation % 15.6 % (11.5-15.5); Red Blood Count 4.44 m/uL (4.00-5.20)
[2022-07-20 07:36] LABS: Albumin* 4.1 g/dL (3.3-5.0); Chloride* 110 mmol/L (96-114)
[2022-07-20 07:37] LABS: Potassium* 3.8 mmol/L (3.6-5.1); Sodium* 138 mmol/L (135-149)
[2022-07-20 07:39] LABS: Est. Creatinine Clearance* 45.16; Estimated Glomerular Filt Rate 62 ml/min
[2022-07-20 07:40] LABS: Alanine Aminotransferase* 37 U/L (4-35); Alkaline Phosphatase* 159 U/L (40-150); Aspartate Amino Transferase* 48 U/L (12-35); Blood Urea Nitrogen* 14 mg/dL (7-30); Calcium* 11.6 mg/dL (8.4-10.6); Carbon Dioxide* 20 mmol/L (20-32); Gamma Glutamyl Transpeptidase* 69 U/L (8-55); Glucose* 125 mg/dL (60-115); Magnesium* 1.9 mg/dL (1.5-2.6); Total Protein* 7.2 g/dL (6.0-8.3)
[2022-07-20 07:43] LABS: C Reactive Protein* 1.2 mg/dL (0.5-1.0); Slide Review Reflex No
[2022-07-20 07:48] LABS: NT Pro B Type NatriureticPept* 282 PG/mL (0-125)
[2022-07-20] MEDS: AMLODIPINE 5 MG TABLET PO (09:11)
[2022-07-20] MEDS: CLOPIDOGREL 75 MG TABLET PO (09:11)
[2022-07-20] MEDS: ASPIRIN 81 MG TAB.CHEW PO (09:11)
[2022-07-20] MEDS: LABETALOL HCL 100 MG TABLET 150 MG PO (10:27)
--- NOTE | 2022-07-20 14:13 | PC.NURSE ---
Shift Note [id number]: Flat affect. BP's slightly hypertensive, within MD's desired parameters and no PRN hydralazine needed. Slightly elevated temp, 100.4. Denies pain. Ongoing left sided weakness. Pt transferring well with EZ-stand. Family at bedside this afternoon. Mediocre appetite, encouraging pt to sip Ensure between meals.
--- NOTE | 2022-07-20 15:35 | PM.IMPN1 ---
Progress Note: A&P Assessment and plan (1) Cerebrovascular accident: Problem details: Admit team reviewed case with Dr. Sánchez ([facility] Neurology) on 07/18 who recommends 3 weeks of dual antiplatelet therapy with Plavix and 81 mg aspirin, followed by 81mg daily aspirin alone. PT and OT Permissive hypertension switching to oral verses IV management. - labetalol up to 150mg BID, amlodipine started a 5 mg daily Status: Acute (2) Thalamic infarction: Problem details: PT/OT as an inpatient. Depending on rate of recovery we need to decide on acute rehab verses home health versus outpatient Status: Acute (3) Metastatic cancer: Problem details: Unknown primary (multiple myeloma vs melanoma vs renal source), MRI of abdomen recommended by radiologist based on findings from 07/17 CT Status: Acute (4) Hypercalcemia: Problem details: Zoledronic acid 07/19/2022, calcium improving Status: Acute Subjective Date Seen: 07/20/22 Interval history: Daily Progress Note - Hospital Medicine Day #: 3 CC: s/p right thalamic stroke; new metastatic cancer identified (likely renal primary) OVERNIGHT UPDATES FROM STAFF & MED, LAB, IMAGING UPDATES lab review -CBC stable -calcium coming down nicely 11.6 from 12.2 -liver enzymes improving -improving strength and coordination. signficant lean to the left; better finger to nose coordination. easy stand to bedside commode. speech rate and articulation improved. 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 MRI in am. Review of Systems: See subjective Cardiac: No new chest pain/pressure/palpitations. Respiratory: no new dyspnea. GI: No abdominal bloating Objective: flat affect. speech improved. makes a joke about everyone's hands are cold here Vitals: see above Lungs: Clear. Cardiac: S1S2. Neuro: left lean; left neglect, strength 4/5, coordination improving. swallow and speech appear to be unaffected. Disposition/Potential discharge - Likely to return to previous living situation vs short term rehab. Total time is 35 minutes with greater than 50% spent in counseling and coordination of care. Exam Const: Vital Signs, click to edit/add: Vital Signs - 24 hr 07/19/22 19:00 07/19/22 22:33 07/19/22 23:00 Temperature 98.8 F 99.5 F Pulse Rate 63 Pulse Rate [Left P ulse Oximeter] 66 75 Respiratory Rate 18 16 Blood Pressure [Ri ght Arm] 156/93 H 173/111 H Pulse Oximetry 93 94 Oxygen Delivery Me thod Room Air Room Air 07/19/22 23:00 07/20/22 03:00 07/20/22 03:50 Temperature 98.7 F Pulse Rate Pulse Rate [Left P ulse Oximeter] 75 77 Respiratory Rate 16 16 Blood Pressure [Ri ght Arm] 207/133 H 178/126 H Pulse Oximetry 93 Oxygen Delivery Me thod Room Air 07/20/22 07:00 07/20/22 08:00 07/20/22 07:00 Temperature 100.6 F H Pulse Rate 78 Pulse Rate [Left P ulse Oximeter] 96 96 Respiratory Rate 18 18 Blood Pressure [Ri ght Arm] 155/83 H Pulse Oximetry 94 Oxygen Delivery Me thod Room Air 07/20/22 12:00 Temperature 100.4 F H Pulse Rate Pulse Rate [Left P ulse Oximeter] 93 Respiratory Rate 18 Blood Pressure [Ri ght Arm] 145/103 H Pulse Oximetry 94 Oxygen Delivery Me thod Room Air Labs Labs: Laboratory Results - last 24 hr 07/20/22 07/20/22 07/20/22 05:59 05:59 05:59 WBC 8.10 RBC 4.44 Hgb 11.7 L Hct 36.0 MCV 81 MCH 26 MCHC 33 RDW Coeff of Christine 15.6 H Plt Count 243 Neut % (Auto) 86.1 H Lymph % (Auto) 5.2 L [place] % (Auto) 6.4 Eos % (Auto) 0.2 Baso % (Auto) 0.5 Neut # (Auto) 7.00 Lymph # (Auto) 0.40 L [place] # (Auto) 0.50 Eos # (Auto) 0.02 Baso # (Auto) 0.04 Abs Immat Gran (auto) 0.13 Sodium 138 Potassium 3.8 Chloride 110 Carbon Dioxide 20 BUN 14 Creatinine 1.0 Estimated Creat Clear 45.16 Estimated GFR 62 Glucose 125 H Calcium 11.6 H Ionized Calcium Dami 1.48 H Magnesium 1.9 Total Bilirubin 1.0 GGT 69 H AST 48 H ALT 37 H Alkaline Phosphatase 159 H C-Reactive Protein 1.2 H NT-Pro-B Natriuret Pep 282 H Total Protein 7.2 Albumin 4.1 TSH 07/20/22 05:59 WBC RBC Hgb Hct MCV MCH MCHC RDW Coeff of Christine Plt Count Neut % (Auto) Lymph % (Auto) [place] % (Auto) Eos % (Auto) Baso % (Auto) Neut # (Auto) Lymph # (Auto) [place] # (Auto) Eos # (Auto) Baso # (Auto) Abs Immat Gran (auto) Sodium Potassium Chloride Carbon Dioxide BUN Creatinine Estimated Creat Clear Estimated GFR Glucose Calcium Ionized Calcium Dami Magnesium Total Bilirubin GGT AST ALT Alkaline Phosphatase C-Reactive Protein NT-Pro-B Natriuret Pep Total Protein Albumin TSH 2.790
--- NOTE | 2022-07-20 22:40 | PC.NURSE ---
Shift [id number]- Patient denies pain throughout shift. Right sided weakness persists. She is alert and oriented. Uses EZ stand for transfers and tolerates well. She is offered to sit in chair this evening, but declines. She is able to adjust self independently in bed, but is assisted for larger repositioning as needed. Pillows also used for offloading and positional aid. Appetite is poor this evening.
[2022-07-21 03:00] VITALS: PULSE 79; RESP 16; O2SAT 93
--- NOTE | 2022-07-21 05:24 | PC.NURSE ---
[id number] Pt slept well between voiding, denies pain, headache, chest pain, N or V. able to make need/wants known. L sided weakness unchanged
[2022-07-21 07:00] VITALS: BP 155/97; PULSE 79; PULSE 80; RESP 20; TEMP 37.3; O2SAT 97
[2022-07-21 07:22] LABS: Basophils Absolute Auto 0.04 K/uL (0.00-0.30); Basophils Percent Auto 0.7 % (0.0-3.0); Eosinophils Absolute Auto 0.09 K/uL (0.00-0.50); Eosinophils Percent Auto 1.5 % (0.0-7.0); Hematocrit 35.5 % (33.0-51.0); Hemoglobin* 11.3 gm/dL (12.0-16.0); Immature Granulocytes Abs Auto 0.03 K/uL (0.00-0.30); Lymphocytes Absolute Auto 1.19 K/uL (0.90-2.90); Lymphocytes Percent Auto 20.3 % (20-44); Mean Corpuscular HGB Conc 32 gm/dL (32-36); Mean Corpuscular Hemoglobin 26 pg (26-34); Mean Corpuscular Volume 81 fL (80-100); Monocytes Percent Auto 10.9 % (0.0-11.0); Neutrophils Absolute Auto 3.87 K/uL (1.7-7.0); Neutrophils Percent Auto 66.1 % (42.0-72.0); Platelet Count* 239 K/uL (140-440); Red Blood Count 4.36 m/uL (4.00-5.20); White Blood Count* 5.86 K/uL (4.50-11.00)
[2022-07-21 07:24] LABS: Slide Review Reflex No
[2022-07-21 07:33] LABS: Chloride* 108 mmol/L (96-114)
[2022-07-21 07:34] LABS: Albumin* 3.9 g/dL (3.3-5.0); Sodium* 139 mmol/L (135-149)
[2022-07-21 07:35] LABS: Potassium* 3.5 mmol/L (3.6-5.1)
[2022-07-21 07:37] LABS: Alanine Aminotransferase* 35 U/L (4-35); Alkaline Phosphatase* 153 U/L (40-150); Aspartate Amino Transferase* 42 U/L (12-35); Bilirubin Total* 0.6 mg/dL (0.1-1.5); Blood Urea Nitrogen* 14 mg/dL (7-30); Carbon Dioxide* 22 mmol/L (20-32); Creatinine* 1.2 mg/dL (0.5-1.5); Est. Creatinine Clearance* 37.63; Estimated Glomerular Filt Rate 50 ml/min
[2022-07-21 07:38] LABS: Glucose* 100 mg/dL (60-115)
[2022-07-21 07:40] LABS: C Reactive Protein* 1.7 mg/dL (0.5-1.0)
[2022-07-21] MEDS: AMLODIPINE 5 MG TABLET PO (09:44)
[2022-07-21] MEDS: ASPIRIN 81 MG TAB.CHEW PO (09:44)
[2022-07-21] MEDS: CLOPIDOGREL 75 MG TABLET PO (09:44)
[2022-07-21] MEDS: LABETALOL HCL 100 MG TABLET 150 MG PO ×2 (09:44→20:14)
[2022-07-21 11:08] LABS: Free Urine Kappa Light Chains 16.36 mg/L (0.00-32.90); Free Urine LAmbda Light Chains 3.55 mg/L (0.00-3.79); Hours Collected Random hr; Total Volume Random mL
--- NOTE | 2022-07-21 12:15 | PC.SOCIAL ---
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 ISAI Garcia Original Note: Met with pt. and spouse regarding discharge plans. Pt. is in agreement that she needs short term rehab. Discussed short term rehab options near [place]. Spouse preferred [place] over [place] options. Left message with [facility] about availability and faxed initial information. Social work will follow up as needed.
--- NOTE | 2022-07-21 14:38 | PC.NURSE ---
End of Shift Note: Patient has been to MRI and returned. She was up in the recliner most of the morning and upon return from scan she is back to bed. She has voided x3 used EZ stand x2 to go into the BR and she was assist of 2 to BSC x1. No complaints of pain. She is trying to use her left leg and arm more. The last time we were up to the bathroom she did try to get her legs up into the bed all by herself and she did well. Will continue to monitor until next shift.
--- NOTE | 2022-07-21 14:52 | CRLHL7_ITS ---
For Patients: As a result of the Century Cures Act, medical imaging exams and procedure reports are released immediately into your electronic medical record. You may view this report before your referring provider. If you have questions, please contact your health care provider. Indication: Right renal lesion. Technique: MRI of the abdomen without and with 20 cc Dotarem IV contrast. Comparison: CT chest, abdomen, pelvis 07/18/2022. Findings: Non cirrhotic configuration of the liver. Mild hepatic steatosis. No suspicious liver lesions. Cholelithiasis without evidence of gallbladder inflammation. No biliary dilation. Fatty infiltration of the pancreas. The spleen and right adrenal gland are negative. There is a 0.8 cm T1 hypointense T2 hyperintense hypoenhancing lesion in the lateral limb of the left adrenal gland compatible with a benign adrenal cyst. Hepatic and portal veins are patent. Symmetric enhancement of the kidneys. Small bilateral renal cysts. There is a 2.2 x 2.0 x 2.2 cm T1 hyperintense T2 dark hypoenhancing exophytic lesion arising from the lower pole of the right kidney compatible with a benign cyst containing hemorrhagic or proteinaceous contents (series 6 image 15, series 14 image 41, series 28 image 41). This corresponds with the indeterminate lesion on CT. No solid renal mass. No hydronephrosis. No bowel dilation. No free fluid or lymphadenopathy in the upper abdomen. Marrow signal is grossly unremarkable. Small cystic space adjacent to the right femur greater trochanter may be related to the bursa (series 5, image 22). Impression: 1. Exophytic right lower pole renal lesion demonstrates features compatible with a benign cyst containing hemorrhagic or proteinaceous contents. Additional small bilateral renal cysts. No solid renal mass. 2. Subcentimeter benign left adrenal cyst. 3. Mild hepatic steatosis. 4. No other evidence of metastatic disease in the abdomen. 5. Findings discussed with Angela Olivares at 3:05 p.m. on 07/21/2022. Dictated by Lillian Garcia MD @ 07/21/2022 3:07:58 PM (Electronically Signed)
[2022-07-21 15:00] VITALS: BP 134/85; PULSE 65; RESP 16; TEMP 36.6; O2SAT 96
--- NOTE | 2022-07-21 17:24 | P.IMPN_ITS ---
Progress Note: A&P Assessment and plan (1) Cerebrovascular accident: Problem details: Admit team reviewed case with Dr. Sánchez ([facility] Neurology) on 07/18 who recommends 3 weeks of dual antiplatelet therapy with Plavix and 81 mg aspirin, followed by 81mg daily aspirin alone. PT and OT Permissive hypertension switching to oral verses IV management. - labetalol up to 150mg BID, amlodipine started a 5 mg daily Status: Acute (2) Thalamic infarction: Problem details: Stable. Progressing. Looking for short-term rehab, SNF at [place]? Status: Acute (3) Hypercalcemia: Problem details: Zoledronic acid 07/19/2022, calcium improving Status: Acute (4) Metastatic cancer: Problem details: Unknown primary. Still trying to connect the pulmonary nodules and calvarium metastasis. Multiple myeloma and renal cancer as a primary have been essentially ruled out. Will need an outpatient Oncology workup, likely including a PET scan. Status: Acute Subjective Date Seen: 07/21/22 Interval history: Daily Progress Note - Hospital Medicine Day #: 4 CC: s/p right thalamic stroke; new metastatic cancer without known primary OVERNIGHT UPDATES FROM STAFF & MED, LAB, IMAGING UPDATES -CBC stable -potassium mildly low -calcium continues to decrease down to 11 -CRP minimally elevated -lambda free light change/Bence Bello protein negative MRI abdomen 1. Exophytic right lower pole renal lesion demonstrates features compatible with a benign cyst containing hemorrhagic or proteinaceous contents. Additional small bilateral renal cysts. No solid renal mass. 2. Subcentimeter benign left adrenal cyst. 3. Mild hepatic steatosis. 4. No other evidence of metastatic disease in the abdomen. Review of Systems: See subjective Cardiac: No new chest pain/pressure/palpitations. Respiratory: no new dyspnea. GI: No abdominal bloating Objective: More interactive. Making jokes. I observed her with OT and PT today. Still has some left-sided neglect, left facial droop, left lean. Vitals: see above Lungs: Clear. Cardiac: S1S2. Neuro: Improving as above. Disposition/Potential discharge - Likely to return to previous living situation. Total time is 35 minutes with greater than 50% spent in counseling and coordination of care. Exam Const: Vital Signs, click to edit/add: Vital Signs - 24 hr 07/20/22 19:19 07/20/22 23:00 07/20/22 23:00 Temperature 99.7 F H Pulse Rate 74 Pulse Rate [Left P ulse Oximeter] 84 83 Respiratory Rate 18 16 Blood Pressure [Ri ght Arm] 141/97 H Pulse Oximetry 97 Oxygen Delivery Me thod Room Air 07/20/22 23:00 07/21/22 03:00 07/21/22 07:00 Temperature 99.3 F 99.1 F Pulse Rate Pulse Rate [Left P ulse Oximeter] 83 79 79 Respiratory Rate 18 16 20 Blood Pressure [Ri ght Arm] 161/96 H 155/97 H Pulse Oximetry 94 93 97 Oxygen Delivery Me thod Room Air Room Air Room Air 07/21/22 07:00 07/21/22 07:00 Temperature Pulse Rate 80 Pulse Rate [Left P ulse Oximeter] 79 Respiratory Rate 20 Blood Pressure [Ri ght Arm] Pulse Oximetry Oxygen Delivery Me thod Labs Labs: Laboratory Results - last 24 hr 07/18/22 07/21/22 07/21/22 12:49 06:54 06:54 WBC 5.86 RBC 4.36 Hgb 11.3 L Hct 35.5 MCV 81 MCH 26 MCHC 32 RDW Coeff of Christine 16.0 H Plt Count 239 Neut % (Auto) 66.1 Lymph % (Auto) 20.3 [place] % (Auto) 10.9 Eos % (Auto) 1.5 Baso % (Auto) 0.7 Neut # (Auto) 3.87 Lymph # (Auto) 1.19 [place] # (Auto) 0.60 Eos # (Auto) 0.09 Baso # (Auto) 0.04 Abs Immat Gran (auto) 0.03 Sodium 139 Potassium 3.5 L Chloride 108 Carbon Dioxide 22 BUN 14 Creatinine 1.2 Estimated Creat Clear 37.63 Estimated GFR 50 Glucose 100 Calcium 11.0 H Magnesium 2.0 Total Bilirubin 0.6 AST 42 H ALT 35 Alkaline Phosphatase 153 H C-Reactive Protein 1.7 H Total Protein 7.0 Albumin 3.9 Ur Collection Duration Random Urine Total Volume Random Urine Total Protein See Note U Free Cruger Light Ch 16.36 U Free Cruger Excretion See Note U Free Lambda Light Ch 3.55 Free Lambda Excret 24 See Note U B-J (MARIELA) Interp See Note
[2022-07-21 19:00] VITALS: BP 194/115; PULSE 67; RESP 16; TEMP 36.8; O2SAT 95
--- NOTE | 2022-07-21 20:10 | PC.NURSE ---
shift [id number] pt this shift returned from MRI and pt had tears of ryne related to good results. EZ stand lift to toilet tolerated well. L sided weakness greater than R. 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 Able to life bilat leg off bed individually. Declined dinner d/t late lunch. at bedside. Denies pain. Alert and oriented.
[2022-07-21 23:00] VITALS: BP 162/86; PULSE 56; PULSE 80; RESP 16; TEMP 37; O2SAT 94
[2022-07-22 02:48] VITALS: BP 149/83; PULSE 70; RESP 18; TEMP 37; O2SAT 95
--- NOTE | 2022-07-22 06:07 | PC.NURSE ---
19-: pleasant and cooperative. Pt requested pen and paper so she can write down questions to ask before d/c, stating shes been forgetful. EZ stand for transfers. Moderate left sided weakness. HR occasionally dips into the 50s. Tele = NSR/Sinus Fercho.
[2022-07-22 06:56] LABS: Basophils Absolute Auto 0.04 K/uL (0.00-0.30); Basophils Percent Auto 0.8 % (0.0-3.0); Eosinophils Absolute Auto 0.23 K/uL (0.00-0.50); Eosinophils Percent Auto 4.6 % (0.0-7.0); Hematocrit 34.5 % (33.0-51.0); Immature Granulocytes Abs Auto 0.02 K/uL (0.00-0.30); Lymphocytes Absolute Auto 1.06 K/uL (0.90-2.90); Lymphocytes Percent Auto 21.3 % (20-44); Mean Corpuscular HGB Conc 32 gm/dL (32-36); Mean Corpuscular Hemoglobin 26 pg (26-34); Mean Corpuscular Volume 81 fL (80-100); Monocytes Percent Auto 12.7 % (0.0-11.0); Neutrophils Absolute Auto 2.99 K/uL (1.7-7.0); Neutrophils Percent Auto 60.2 % (42.0-72.0); Platelet Count* 217 K/uL (140-440); RDW Coefficient of Variation % 16.1 % (11.5-15.5); Red Blood Count 4.24 m/uL (4.00-5.20); White Blood Count* 4.97 K/uL (4.50-11.00)
[2022-07-22 07:00] VITALS: BP 160/98; PULSE 67; RESP 18; TEMP 37.5; O2SAT 95
[2022-07-22 07:03] LABS: Slide Review Reflex No
[2022-07-22 07:12] LABS: Albumin* 3.5 g/dL (3.3-5.0); Chloride* 110 mmol/L (96-114)
[2022-07-22 07:13] LABS: Potassium* 3.5 mmol/L (3.6-5.1); Sodium* 138 mmol/L (135-149)
[2022-07-22 07:15] LABS: Bilirubin Total* 0.5 mg/dL (0.1-1.5); Creatinine* 0.9 mg/dL (0.5-1.5); Est. Creatinine Clearance* 45.16; Estimated Glomerular Filt Rate 70 ml/min
[2022-07-22 07:16] LABS: Alanine Aminotransferase* 33 U/L (4-35); Alkaline Phosphatase* 136 U/L (40-150); Aspartate Amino Transferase* 40 U/L (12-35); Blood Urea Nitrogen* 15 mg/dL (7-30); Carbon Dioxide* 22 mmol/L (20-32); Glucose* 98 mg/dL (60-115); Magnesium* 2.1 mg/dL (1.5-2.6); Total Protein* 6.4 g/dL (6.0-8.3)
[2022-07-22 07:19] LABS: C Reactive Protein* 1.4 mg/dL (0.5-1.0)
--- NOTE | 2022-07-22 09:11 | PM.IMPN1 ---
Progress Note: A&P Assessment and plan (1) Cerebrovascular accident: Problem details: Admit team reviewed case with Dr. Sánchez ([facility] Neurology) on 07/18 who recommends 3 weeks of dual antiplatelet therapy with Plavix and 81 mg aspirin, followed by 81mg daily aspirin alone. PT and OT Permissive hypertension switching to oral verses IV management. - labetalol up to 150mg BID, amlodipine started a 5 mg daily Status: Acute (2) Hypercalcemia: Problem details: Zoledronic acid 07/19/2022, calcium improving Status: Acute (3) Thalamic infarction: Problem details: Stable. Progressing. Looking for short-term rehab, SNF at [place]? Status: Acute (4) Metastatic cancer: Problem details: Unknown primary. Still trying to connect the pulmonary nodules and calvarium metastasis. Multiple myeloma and renal cancer as a primary have been essentially ruled out. Will need an outpatient Oncology workup, likely including a PET scan. Status: Acute (5) Hypertension: Problem details: Labetalol 150 b.i.d., amlodipine 5 mg daily Status: Acute Subjective Date Seen: 07/22/22 Interval history: Daily Progress Note - Hospital Medicine Day #: 5 CC: s/p right thalamic stroke; new metastatic cancer without known primary OVERNIGHT UPDATES FROM STAFF & MED, LAB, IMAGING UPDATES Hemoglobin stable Potassium remains just mildly depressed at 3 point CRP down trending Calcium is now normal status post 1 dose of zoledronic acid, 4 mg Review of Systems: See subjective Cardiac: No new chest pain/pressure/palpitations. Respiratory: no new dyspnea. GI: No abdominal bloating Objective: Patient's brighter and more interactive. Smiling more. Joking. Vitals: see above Lungs: Clear. Cardiac: S1S2. Neurologic: Moderate left-sided hemiparesis. However she has an easy stand and continues to progress neurologically. I did some finger to nose and ear testing today. She wears to the right but is aware and has improved. Disposition/Potential discharge - Short-term rehab, [place] likely Total time is 35 minutes with greater than 50% spent in counseling and coordination of care. Exam Const: Vital Signs, click to edit/add: Vital Signs - 24 hr 07/21/22 15:00 07/21/22 15:00 07/21/22 19:00 Temperature 97.9 F 98.3 F Pulse Rate Pulse Rate [Left P ulse Oximeter] 65 65 67 Respiratory Rate 16 16 16 Blood Pressure [Ri ght Arm] 134/85 194/115 H Pulse Oximetry 96 95 Oxygen Delivery Me thod Room Air Room Air 07/21/22 23:00 07/21/22 23:00 07/21/22 23:00 Temperature 98.6 F Pulse Rate 80 Pulse Rate [Left P ulse Oximeter] 56 L 56 L Respiratory Rate 16 16 Blood Pressure [Ri ght Arm] 162/86 H Pulse Oximetry 94 Oxygen Delivery Me thod Room Air 07/22/22 02:48 Temperature 98.6 F Pulse Rate Pulse Rate [Left P ulse Oximeter] 70 Respiratory Rate 18 Blood Pressure [Ri ght Arm] 149/83 H Pulse Oximetry 95 Oxygen Delivery Me thod Room Air Labs Labs: Laboratory Results - last 24 hr 07/18/22 07/22/22 07/22/22 12:49 05:55 05:55 WBC 4.97 RBC 4.24 Hgb 11.0 L Hct 34.5 MCV 81 MCH 26 MCHC 32 RDW Coeff of Christine 16.1 H Plt Count 217 Neut % (Auto) 60.2 Lymph % (Auto) 21.3 [place] % (Auto) 12.7 H Eos % (Auto) 4.6 Baso % (Auto) 0.8 Neut # (Auto) 2.99 Lymph # (Auto) 1.06 [place] # (Auto) 0.60 Eos # (Auto) 0.23 Baso # (Auto) 0.04 Abs Immat Gran (auto) 0.02 Sodium 138 Potassium 3.5 L Chloride 110 Carbon Dioxide 22 BUN 15 Creatinine 0.9 Estimated Creat Clear 45.16 Estimated GFR 70 Glucose 98 Calcium 10.0 Magnesium 2.1 Total Bilirubin 0.5 AST 40 H ALT 33 Alkaline Phosphatase 136 C-Reactive Protein 1.4 H Total Protein 6.4 Albumin 3.5 Ur Collection Duration Random Urine Total Volume Random Urine Total Protein See Note U Free Mabel Light Ch 16.36 U Free Mabel Excretion See Note U Free Lambda Light Ch 3.55 Free Lambda Excret 24 See Note U B-J (MARIELA) Interp See Note
[2022-07-22] MEDS: AMLODIPINE 5 MG TABLET PO (09:13)
[2022-07-22] MEDS: ASPIRIN 81 MG TAB.CHEW PO (09:13)
[2022-07-22] MEDS: CLOPIDOGREL 75 MG TABLET PO (09:13)
[2022-07-22] MEDS: LABETALOL HCL 100 MG TABLET 150 MG PO ×2 (09:14→21:24)
[2022-07-22] MEDS: MULTIVITAMIN/MINERALS 1 TABLET 1 TAB PO (10:26)
[2022-07-22 11:00] VITALS: BP 109/80; PULSE 59; RESP 15; O2SAT 95
[2022-07-22 15:00] VITALS: BP 130/92; PULSE 64; PULSE 65; RESP 15; TEMP 36.5; O2SAT 96
--- NOTE | 2022-07-22 15:00 | PC.SOCIAL ---
Addendum entered by ISAI Lerma 07/22/22 16:12: Social work financial intern note reviewed. ISAI Garcia Original Note: Social Work checked in with patient about discharge plan. Pt. is accepted to [facility] and will drive her there at 10am tomorrow (07/23). Staff at [facility] will assist with helping her out of the car.
--- NOTE | 2022-07-22 18:37 | PC.NURSE ---
Addendum entered by Latricia Liu RN 07/22/22 19:26: pt walked to bedside commode with 2 person assist, walker, and gait belt before bed, then from commode to bed Original Note: shift [id number] pt this shift calm and cooperative. up to the bathroom with EZ lift. Pt worked with PT and was able to ambulate with 2 person assist using gait belt and walker. Pt needed verbal cues to extend the L foot fully forward. Encouraged to continue ambulating but pt has sense of urgency and requests the EZ lift. Left sided weakness mild to moderate in upper and lower extremities. Able to grasp hand but finds it difficult to raise arm up to writers. Able to extend lower extremities one at a time up to writers hand equally. [facility] requests pt to get Covid vaccine booster or they may possibly require quarantine upon arrival. Pt concerned about family not being able to visit for support. computer recycling worker aware and is in communication with pt. Pt A&O x4. Used IS at vitals, 750 was reached x3.
[2022-07-22 19:00] VITALS: BP 140/105; PULSE 62; RESP 18; TEMP 36.7; O2SAT 98
[2022-07-22 23:00] VITALS: BP 142/76; PULSE 50; PULSE 88; RESP 18; TEMP 36.6; O2SAT 96
[2022-07-23 03:00] VITALS: PULSE 90; RESP 20; TEMP 36.6; O2SAT 95
--- NOTE | 2022-07-23 06:51 | PC.NURSE ---
Shift note: Pt ambulates with assist of 1 to 2 to the BSC, RN encouraged to perform tasks independently with minimum assist, pt appears to be motivated to do so. Speech is clear
[2022-07-23 06:57] LABS: Basophils Absolute Auto 0.05 K/uL (0.00-0.30); Basophils Percent Auto 1.1 % (0.0-3.0); Eosinophils Absolute Auto 0.22 K/uL (0.00-0.50); Eosinophils Percent Auto 4.7 % (0.0-7.0); Hematocrit 34.4 % (33.0-51.0); Hemoglobin* 11.1 gm/dL (12.0-16.0); Immature Granulocytes Abs Auto 0.01 K/uL (0.00-0.30); Lymphocytes Absolute Auto 1.24 K/uL (0.90-2.90); Lymphocytes Percent Auto 26.3 % (20-44); Mean Corpuscular HGB Conc 32 gm/dL (32-36); Mean Corpuscular Hemoglobin 26 pg (26-34); Mean Corpuscular Volume 82 fL (80-100); Monocytes Percent Auto 11.2 % (0.0-11.0); Neutrophils Absolute Auto 2.67 K/uL (1.7-7.0); Neutrophils Percent Auto 56.5 % (42.0-72.0); Platelet Count* 217 K/uL (140-440); RDW Coefficient of Variation % 16.2 % (11.5-15.5); Red Blood Count 4.21 m/uL (4.00-5.20); White Blood Count* 4.72 K/uL (4.50-11.00)
[2022-07-23 07:00] VITALS: BP 142/98; PULSE 53; PULSE 97; RESP 20; TEMP 36.8; O2SAT 97
[2022-07-23 07:12] LABS: Slide Review Reflex No
[2022-07-23 07:20] LABS: Albumin* 3.6 g/dL (3.3-5.0); Chloride* 111 mmol/L (96-114); Sodium* 139 mmol/L (135-149)
[2022-07-23 07:21] LABS: Potassium* 3.3 mmol/L (3.6-5.1)
[2022-07-23 07:22] LABS: Creatinine* 0.9 mg/dL (0.5-1.5); Est. Creatinine Clearance* 45.16; Estimated Glomerular Filt Rate 70 ml/min
[2022-07-23 07:23] LABS: Alanine Aminotransferase* 35 U/L (4-35); Alkaline Phosphatase* 136 U/L (40-150); Aspartate Amino Transferase* 40 U/L (12-35); Bilirubin Total* 0.4 mg/dL (0.1-1.5); Blood Urea Nitrogen* 17 mg/dL (7-30); Carbon Dioxide* 21 mmol/L (20-32); Glucose* 100 mg/dL (60-115); Total Protein* 6.5 g/dL (6.0-8.3)
[2022-07-23 07:24] LABS: Calcium* 10.6 mg/dL (8.4-10.6); Magnesium* 2.3 mg/dL (1.5-2.6)
[2022-07-23 07:26] LABS: C Reactive Protein* 0.6 mg/dL (0.5-1.0)
[2022-07-23] MEDS: ASPIRIN 81 MG TAB.CHEW PO (08:15)
[2022-07-23] MEDS: AMLODIPINE 5 MG TABLET PO (08:15)
[2022-07-23] MEDS: CLOPIDOGREL 75 MG TABLET PO (08:16)
[2022-07-23] MEDS: LABETALOL HCL 100 MG TABLET 150 MG PO (08:16)
[2022-07-23] MEDS: MULTIVITAMIN/MINERALS 1 TABLET 1 TAB PO (08:17)
[2022-07-23] MEDS: POTASSIUM CHLORIDE 10 MEQ CAPSULE ER 20 MEQ PO (08:18)
[2022-07-23] MEDS: SODIUM CHLORIDE 0.9 % (FLUSH) 10 ML SYRINGE 5 ML IVF (08:19)
[2022-07-23 09:24] LABS: Albumin 3.48 g/dL (3.75-5.01); Alpha 1 Globulin 0.38 g/dL (0.19-0.46); EER Immunofix Electrophoresis EERUnavailable; Total Protein, Serum 6.9 g/dL (6.3-8.2)
--- NOTE | 2022-07-24 15:55 | PM.DS1 ---
DS: Providers Provider Date Seen: 07/24/22 Date of admission: 07/21/22 09:05 Primary care physician: Not a Local Provider Admitting Clinician: Felicia Barreto MD Consults: 07/18/22 16:27 Consult to Occupational Therapy [CONS] Routine Comment: Reason(s) for OT Consult:: Evaluate and Treat Any Restrictions?:: Wt Bearing as Tolerated Comment: CVA Consult to Physical Therapy [CONS] Routine Comment: Reason(s) for PT Consult:: Evaluate and Treat Any Restrictions?:: Wt Bearing as Tolerated Comment: CVA Consult to Speech Therapy [CONS] Routine Comment: Reason(s) for Speech Consult:: Speech/Swallowing Eval 07/18/22 23:01 Consult to Occupational Therapy [CONS] Routine Comment: Reason(s) for OT Consult:: Difficulty Managing ADLs Any Restrictions?:: Unknown Consult to Physical Therapy [CONS] Routine Comment: Reason(s) for PT Consult:: Inability to Mobilize Any Restrictions?:: Unknown Attending Physician on discharge: Angela Olivares MD Date of Discharge: 07/24/22 DS: Diagnosis Discharge Diagnosis (1) Cerebrovascular accident: Status: Acute Problem details: Admit team reviewed case with Dr. Sánchez ([facility] Neurology) on 07/18 who recommends 3 weeks of dual antiplatelet therapy with Plavix and 81 mg aspirin, followed by 81mg daily aspirin alone. PT and OT Permissive hypertension switching to oral verses IV management. - labetalol up to 150mg BID, amlodipine started a 5 mg daily (2) Thalamic infarction: Status: Acute Problem details: Stable. Progressing. Looking for short-term rehab, SNF at [place]? (3) Hypercalcemia: Status: Acute Problem details: Zoledronic acid 07/19/2022, calcium improving (4) Metastatic cancer: Status: Acute Problem details: Unknown primary. Still trying to connect the pulmonary nodules and calvarium metastasis. Multiple myeloma and renal cancer as a primary have been essentially ruled out. Will need an outpatient Oncology workup, likely including a PET scan. (5) Hypertension: Status: Acute Problem details: Labetalol 150 b.i.d., amlodipine 5 mg daily DS: Summary Hospital Course Hospital Course: HOSPITALIST DISCHARGE SUMMARY ATTENDING PHYSICIAN: Angela Olivares MD FINAL DIAGNOSIS: Acute right thalamic CVA New metastatic cancer - calvarium bone Mets, pulmonary nodules? Vulva? Hypertension Hypercalcemia HOSPITAL FOLLOWUP ISSUES: 1. Continued neurologic observation and management of ongoing hypertension and history of acute stroke. She has been discharged on Plavix and aspirin. She is also receiving blood pressure management with labetalol and amlodipine. These may need to be adjusted as we go along. 2. From a cancer standpoint we have mets noted on the brain MRI to the calvarium, shadows and pulmonary nodule seen in bilateral lung andre. It appears her abdominal MRI rules out renal source. Labs do not appear consistent with multiple myeloma with a negative Bence-Bello protein. I suspect that she either has a primary lung or other skeletal diagnosis. I have asked her to arrange within oncology visit here [place]. I likely suspect she will need a PET scan. 3. Hypercalcemia - She was treated with 1 dose of Zolendronic acid and had nice resolution but this should be followed. REFERRALS WHILE ADMITTED: PT/OT REFERRALS AFTER DISCHARGE: PT, OT, speech BRIEF HOSPITAL COURSE: Patient was admitted with evidence of stroke and a new cancer. She was supported hemodynamically with modest blood pressure control, IV fluids and oxygen. She did not received lytics and this was most likely ischemic in nature. Right thalamus. She was noted to have left facial weakness, left upper and lower extremity weakness, left-sided neglect. PT worked with her and saw great strides in her strength and motivation. We explained the findings of the cancer and she was appropriately worried. We initially thought she either had a renal source or a multiple myeloma diagnosis. Labs reveal that it is likely not multiple myeloma and her abdominal MRI was negative. She did have a soft tissue finding on her vulva but this does not look to be malignant. I have asked that she follow-up with Oncology and likely need a PET scan for further workup. For the short term she should focus on recovering from her stroke. VITAL SIGN, MEDICATION, LAB/MICRO, IMAGING SUMMARY (full details available in account tabs or by records request) CT CAP 1. Indeterminate exophytic 2.5 cm lesion extending from the lateral interpolar region of the right kidney. Further evaluation with renal protocol MRI is recommended. 2. Diffuse mottled appearance of the bone marrow, is worrisome for infiltrative neoplastic process. Differential includes diffuse osteopenia. The MRI would also be helpful in differentiating. 3. Scattered pulmonary nodules measuring up to 1.1 cm in the left lower lobe, worrisome for metastases. 4. Indeterminate cutaneous lesion near the right labia majora measures 1.5 cm. Recommend clinical correlation with direct visualization. 5. Indeterminate subcentimeter nodule at the lateral limb of the left adrenal gland. MRI Abdomen: 1. Exophytic right lower pole renal lesion demonstrates features compatible with a benign cyst containing hemorrhagic or proteinaceous contents. Additional small bilateral renal cysts. No solid renal mass. 2. Subcentimeter benign left adrenal cyst. 3. Mild hepatic steatosis. 4. No other evidence of metastatic disease in the abdomen. Brain MRI Impression: 1. Hyperacute to acute right thalamic infarct. 2. Enhancement corresponding to lytic lesions identified on CT of the head. Overall features are concerning for malignant process such as multiple myeloma versus calvarial metastases. 3. Moderate chronic ischemic microvascular disease. DISCHARGE MEDICATIONS: See Reconciled list REVIEW OF SYSTEMS No new chest pain or dyspnea Pain controlled No voiding difficulties Tolerating diet challenge PHYSICAL EXAM: CONSTITUTIONAL: VITAL SIGNS: see record. HEENT: Normocephalic, atraumatic. PERRL, EOMI, conjunctivae pink, no scleral icterus. Ears and nose externally normal. Pharynx normal. NECK: No JVD. No carotid bruit, no thyromegaly, no adenopathy. CHEST: Clear to auscultation bilaterally. HEART: S1 and S2 normal. Edema minimal ABDOMEN: Soft, nontender. Normal bowel sounds. MUSCULOSKELETAL: No gross joint deformity or swelling. NEURO: Left-sided weakness but improving. Some left sided lean and left sided neck lacks still present. Again this seems to be improving. Finger to nose and other obvious cerebellar signs are minimal at the time of discharge. SKIN: Small SK on her vulva. PSYCHIATRIC: Mood euthymic. DISPOSITION: Time spent on discharge 37 minutes. Status at Discharge Functional status at discharge: uses cane/walker Overall status at discharge: patient is progressing back to baseline Time Spent with Patient Time attestation: Total time spent providing and/or coordinating discharge services: Time spent: Greater than 30 minutes Discharge Plan Discharge Disposition: [facility] Date of Admission: 07/21/22 09:05 Attending Provider on Discharge: Angela Olivares Primary Care Provider: Provider,Not a Local Condition: Unchanged Discharge Medications: New amlodipine 5 mg Tablet 5 mg PO DAILY Qty: 30 0RF aspirin [Children's Aspirin] 81 mg Tablet,Chewable 81 mg PO DAILY Qty: 30 0RF clopidogrel 75 mg Tablet 75 mg PO DAILY Qty: 30 0RF labetalol 100 mg Tablet 150 mg PO BID Qty: 60 0RF multivitamin with folic acid [Thera] 400 mcg Tablet 1 tab PO DAILY Qty: 30 0RF potassium chloride 10 mEq Capsule, Extended Release 20 meq PO DAILY Qty: 30 0RF vitamin B complex-folic acid 0.4 mg Tablet 1 tab PO DAILY Qty: 30 0RF Discontinued Multivitamin 50 Plus Tablet 1 tab PO DAILY vitamin B complex [Vitamins B Complex] Tablet 1 tab PO DAILY Discharge Orders: Discharge Order (Routine); Ordered 07/23/22 Ordered By: Angela Olivares Additional Instructions: -meet with a new PCP once you are graduated from rehab -The discharging physician will get an oncology referral for you for August to go over labs, results, and order the PET SCAN as we discussed. -The new meds you are blood thinners for the stroke, blood pressure medications to help the brain heal and keep future strokes from happening and the potassium and vitamins are to keep you healthy and healing well. Activity Level: Up with assist Discharge Diet: Regular Follow Up Appointments: Helen Andres MD [Staff Physician] - (go ahead with August appt - establish care; s/p CVA and new metastatic cancer) Provider,Not a Local [Primary Care Provider] -
--- NOTE | 2022-07-28 12:20 | P.IMPN_ITS ---
Progress Note: A&P Assessment and plan (1) Cerebrovascular accident: Problem details: Admit team reviewed case with Dr. Sánchez ([facility] Neurology) on 07/18 who recommends 3 weeks of dual antiplatelet therapy with Plavix and 81 mg aspirin, followed by 81mg daily aspirin alone. PT and OT Permissive hypertension switching to oral verses IV management. - labetalol up to 150mg BID, amlodipine started a 5 mg daily Status: Acute (2) Thalamic infarction: Problem details: Stable. Progressing. Looking for short-term rehab, SNF at [place]? Status: Acute (3) Hypercalcemia: Problem details: Zoledronic acid 07/19/2022, calcium improving Status: Acute (4) Metastatic cancer: Problem details: Unknown primary. Still trying to connect the pulmonary nodules and calvarium metastasis. Multiple myeloma and renal cancer as a primary have been essentially ruled out. Will need an outpatient Oncology workup, likely including a PET scan. Status: Acute (5) Hypertension: Problem details: Labetalol 150 b.i.d., amlodipine 5 mg daily Status: Acute Subjective Date Seen: 07/23/22 Interval history: Daily Progress Note - Hospital Medicine Day #: 6 CC: s/p right thalamic stroke; new metastatic cancer without known primary OVERNIGHT UPDATES FROM STAFF & MED, LAB, IMAGING UPDATES 6 am on 07/23/2022 the following labs are noted: Stable hemoglobin, 11.1. No leukocytosis. Potassium 3.3 from 3.5. Calcium 10.6. AST stable, minimally elevated at 40. C reactive protein is now normal. Alk- phos is normal. Of note, free kappa light chains and Bence-Bello protein screen negative. Normal SPEP pattern. MARIELA gel shows a normal pattern; no monoclonal proteins seen. Calcium is now normal status post 1 dose of zoledronic acid, 4 mg Review of Systems: See subjective Cardiac: No new chest pain/pressure/palpitations. Respiratory: no new dyspnea. GI: No abdominal bloating Objective: Patient's brighter and more interactive. Smiling more. Joking. Vitals: see above Lungs: Clear. Cardiac: S1S2. Neurologic: Moderate left-sided hemiparesis. However she has an easy stand and continues to progress neurologically. I did some finger to nose and ear testing today. She wears to the right but is aware and has improved. Disposition/Potential discharge - Short-term rehab, [place] likely Total time is 35 minutes with greater than 50% spent in counseling and coordination of care.
== END 2022-07-23 10:13 | DRG 65 ==
LOC: ED 14:07 → MEDSURG 17:21
PROVIDERS: Admitting Provider Family Medicine; Emergency Provider Emergency Medicine Emergency Medical Services; Visit Provider Family Medicine
DX: I63.412 Cerebral infarction due to embolism of left middle cerebral artery (principal); C78.01 Secondary malignant neoplasm of right lung; C78.02 Secondary malignant neoplasm of left lung; C79.51 Secondary malignant neoplasm of bone; I69.354 Hemiplegia and hemiparesis following cerebral infarction affecting left non-dominant side; I69.392 Facial weakness following cerebral infarction; I10 Essential (primary) hypertension; E83.52 Hypercalcemia; E87.6 Hypokalemia; C80.1 Malignant (primary) neoplasm, unspecified; N90.89 Other specified noninflammatory disorders of vulva and perineum; N28.9 Disorder of kidney and ureter, unspecified; E27.8 Other specified disorders of adrenal gland; M54.50 Low back pain, unspecified
CPT/HCPCS: 36415; 70450; 70553; 71260; 74177; 74183; 80048; 80053; 80061; 80076; 81001; 81003; 81015; 82330; 82962; 82977; 83036; 83520; 83735; 83880; 84156; 84165; 84443; 85025; 85610; 86140; 86334; 86335; 87635; 92610; 93005; 93306; 97110; 97116; 97162; 97165; 97530; 97535; 99285; 99291; G0378; A9153; A9270; A9575; J0360; J0780; J3489; J7030; J7120; Q9967

== ENCOUNTER 2022-09-22 09:32 | Outpatient (CLI) | payer MEDICARE, SELFPAY ==
[2022-09-22 12:30] LABS: Chloride* 111 mmol/L (96-114); Potassium* 5.4 mmol/L (3.6-5.1); Sodium* 141 mmol/L (135-149)
[2022-09-22 12:33] LABS: Blood Urea Nitrogen* 14 mg/dL (7-30); Carbon Dioxide* 26 mmol/L (20-32); Cholesterol* 220 mg/dL (90-199); Estimated Glomerular Filt Rate 62 ml/min; Glucose* 92 mg/dL (60-115)
[2022-09-22 12:34] LABS: Calcium* 11.5 mg/dL (8.4-10.6); HDL Cholesterol* 61 mg/dL (>=50); LDL Cholesterol Calculated 126 mg/dL (<100); Triglycerides* 164 mg/dL (40-149)
== END 2022-09-22 09:33 | disposition home or self-care (01) ==
PROVIDERS: PCP Internal Medicine; Visit Provider Internal Medicine
DX: I10 Essential (primary) hypertension (principal); Z86.73 Personal history of transient ischemic attack (TIA), and cerebral infarction without residual deficits
CPT/HCPCS: 80048; 80061

== ENCOUNTER 2022-10-20 11:08 | Outpatient (CLI) | payer MEDICARE, SELFPAY ==
[2022-10-20 09:02] LABS: Chloride* 111 mmol/L (96-114); Sodium* 140 mmol/L (135-149)
[2022-10-20 09:05] LABS: Carbon Dioxide* 24 mmol/L (20-32); Estimated Glomerular Filt Rate 62 ml/min
[2022-10-20 09:06] LABS: Blood Urea Nitrogen* 16 mg/dL (7-30); Calcium* 11.3 mg/dL (8.4-10.6); Glucose* 115 mg/dL (60-115)
== END 2022-10-20 11:09 | disposition home or self-care (01) ==
PROVIDERS: PCP Internal Medicine; Visit Provider Internal Medicine
DX: I10 Essential (primary) hypertension (principal)
CPT/HCPCS: 80048

== ENCOUNTER 2022-11-17 08:33 | Outpatient (CLI) | payer MEDICARE, SELFPAY ==
[2022-11-17 09:49] LABS: Chloride* 109 mmol/L (96-114)
[2022-11-17 09:50] LABS: Potassium* 4.8 mmol/L (3.6-5.1); Sodium* 139 mmol/L (135-149)
[2022-11-17 09:52] LABS: Creatinine* 1.1 mg/dL (0.5-1.5); Estimated Glomerular Filt Rate 55 ml/min
[2022-11-17 09:53] LABS: Blood Urea Nitrogen* 16 mg/dL (7-30); Calcium* 11.7 mg/dL (8.4-10.6); Carbon Dioxide* 28 mmol/L (20-32); Glucose* 90 mg/dL (60-115)
== END 2022-11-17 08:34 | disposition home or self-care (01) ==
LOC: NFLDREF 08:34
PROVIDERS: PCP Internal Medicine; Visit Provider Internal Medicine
DX: E83.52 Hypercalcemia (principal)
CPT/HCPCS: 80048

== ENCOUNTER 2022-12-15 08:56 | Outpatient (CLI) | payer MEDICARE, SELFPAY | END 2022-12-15 08:57 | disposition home or self-care (01) | LOC: NFLDREF 12-19 09:59 | PROVIDERS: PCP Internal Medicine; Referring Provider Internal Medicine; Visit Provider Internal Medicine | DX: E83.52 Hypercalcemia (principal) | CPT/HCPCS: 80048 ==

== ENCOUNTER 2023-01-12 08:38 | Outpatient (CLI) | payer MEDICARE, SELFPAY | END 2023-01-12 08:39 | disposition home or self-care (01) | LOC: NFLDREF 16:39 | PROVIDERS: PCP Internal Medicine; Referring Provider Internal Medicine; Visit Provider Internal Medicine | DX: E83.52 Hypercalcemia (principal) | CPT/HCPCS: 80048 ==

== ENCOUNTER 2023-03-19 08:00 | Outpatient (RCR) | payer MEDICARE, SELFPAY ==
--- NOTE | 2022-09-26 09:33 | URNOTE ---
Received request for prior auth for Zoledronic Acid ([id number]). Per Alessandra on behalf of , this has been approved 09/24/2022-03/23/2023. Auth #[id number]
[2022-09-30 13:48] VITALS: BP 145/86; PULSE 59; RESP 18; TEMP 36.4; O2SAT 96
[2022-09-30] MEDS: ZOLEDRONIC ACID 4 MG in 0.9 % SODIUM CHLORIDE 100 ml 100 ML 420 MG IVPB (14:20)
[2022-10-24 08:59] VITALS: BP 138/86; PULSE 71; RESP 16; O2SAT 99
[2022-10-24] MEDS: ZOLEDRONIC ACID 4 MG in 0.9 % SODIUM CHLORIDE 100 ml 100 ML 420 MG IVPB (09:26)
[2022-11-18 13:20] VITALS: BP 128/86; PULSE 79; RESP 16; TEMP 36.1; O2SAT 97
[2022-11-18] MEDS: ZOLEDRONIC ACID 4 MG in 0.9 % SODIUM CHLORIDE 100 ml 100 ML 420 MG IVPB (13:44)
--- NOTE | 2022-12-10 14:12 | ONC.NURNOTE ---
Patient called stating she wanted to be sure everything is ready for her transfusion on Thursday at 1000. Patient with diagnosis of hypercalcemia and has been receiving monthly Zometa infusions. Patient states her labs are scheduled for 915 at clinic and then she'll come right over. Orders faxed to pharmacy
[2022-12-15 09:30] VITALS: BP 133/89; PULSE 81; RESP 16; TEMP 36.7; O2SAT 96
[2022-12-15] MEDS: ZOLEDRONIC ACID 4 MG in 0.9 % SODIUM CHLORIDE 100 ml 100 ML 420 MG IVPB (11:12)
--- NOTE | 2022-12-15 15:39 | ONC.NURNOTE ---
extra waiting time due to pts labs drawn at the clinic. suggested pt have labs drawn in the future the day before her zometa. cr cl 48. steph well
[2023-01-13 08:23] VITALS: BP 120/81; PULSE 82; RESP 18; TEMP 36.8; O2SAT 97
[2023-01-13] MEDS: ZOLEDRONIC ACID 4 MG in 0.9 % SODIUM CHLORIDE 100 ml 100 ML 420 MG IVPB (08:29)
--- NOTE | 2023-01-13 08:30 | PC.NURSE ---
Pt present at [facility] for Zometa infusion for Hypercalcemia of Malignancy. RN noted serum creat of 2.0. Calculated CrCl at 31.19. Looked up guidelines in clinical pharm and noted no dose adjustment needed for serum creat under 4.5. Proceeded with infusion. Discussed with patient and asked her to mind her urine output and notify Dr. Andres if she has a significant decrease in urine output. Pt verbalized understanding.
--- NOTE | 2023-01-13 14:56 | PC.NURSE ---
Addendum entered by Esthela Jackson RN 01/13/23 15:53: Received a call back from Dr. Andres's office. MD would like to review labs prior to infusion. No further orders at this time. Original Note: Pt present at [facility] today for Zometa infusion. Dr. Andres has ordered monthly labs which are scheduled and a three month MD follow-up which is scheduled. We received one time Zometa infusion orders for today's dose. Pt would like to schedule her subsequent Zometa infusions on the same days as her lab appointments. RN called Dr. Andres's team today requesting orders to do so.
[2023-02-20 08:09] VITALS: BP 123/85; PULSE 65; RESP 16; TEMP 36.9; O2SAT 98
[2023-02-20] MEDS: ZOLEDRONIC ACID 4 MG in 0.9 % SODIUM CHLORIDE 100 ml 100 ML 420 MG IVPB (08:17)
[2023-03-19 08:10] VITALS: BP 115/82; PULSE 62; RESP 16; TEMP 36.1
[2023-03-19] MEDS: ZOLEDRONIC ACID 4 MG in 0.9 % SODIUM CHLORIDE 100 ml 100 ML 420 MG IVPB (08:22)
== END 2023-03-29 23:59 | disposition home or self-care (01) ==
LOC: CCIC 08:00
PROVIDERS: PCP Internal Medicine; Referring Provider Internal Medicine; Visit Provider Internal Medicine
DX: E83.52 Hypercalcemia (principal)
CPT/HCPCS: 80048; 96374; J3489

== ENCOUNTER 2023-04-27 08:00 | Outpatient (CLI) | payer MEDICARE, SELFPAY | END 2023-04-27 08:01 | disposition home or self-care (01) | LOC: NFLDREF 11:44 | PROVIDERS: PCP Internal Medicine; Referring Provider Internal Medicine; Visit Provider Internal Medicine | DX: I10 Essential (primary) hypertension (principal); E83.52 Hypercalcemia; N18.30 Chronic kidney disease, stage 3 unspecified; Z86.73 Personal history of transient ischemic attack (TIA), and cerebral infarction without residual deficits; C80.1 Malignant (primary) neoplasm, unspecified | CPT/HCPCS: 80048 ==

== ENCOUNTER 2023-06-02 07:46 | Outpatient (CLI) | payer MEDICARE, SELFPAY | END 2023-06-02 07:47 | disposition home or self-care (01) | LOC: NFLDREF 17:47 | PROVIDERS: PCP Internal Medicine; Referring Provider Internal Medicine; Visit Provider Internal Medicine | DX: E83.52 Hypercalcemia (principal); Z86.73 Personal history of transient ischemic attack (TIA), and cerebral infarction without residual deficits | CPT/HCPCS: 80048; 80061; 82310; 82397; 83970 ==

== ENCOUNTER 2023-06-02 08:08 | Outpatient (CLI) | payer MEDICARE, SELFPAY ==
--- NOTE | 2023-06-02 09:00 | CRLHL7_ITS ---
For Patients: As a result of the Century Cures Act, medical imaging exams and procedure reports are released immediately into your electronic medical record. You may view this report before your referring provider. If you have questions, please contact your health care provider. INDICATION: Hypercalcemia malignancy.. TECHNIQUE: CT abdomen and pelvis acquired with 100 cc Omnipaque 350 IV contrast. COMPARISON: Previous CT from 07/18/2022.. FINDINGS: Heart is normal in size. No pericardial or pleural effusion. Stable 1 centimeter nodule in the left lung base. Liver, spleen, pancreas, adrenals within normal limits. Calcified gallstones noted. No pericholecystic fluid or gallbladder wall thickening. Relatively stable 2.5 centimeter exophytic hyperdense lesion in the right kidney. Stable couple of low-density lesions in the left kidney. No enlarged retroperitoneal or pelvic adenopathy. No free pelvic free air or ascites. Uterus is present. Urinary bladder is within normal limits. No abnormally dilated bowel loops to suggest bowel obstruction. Stable salt and pepper appearance of the bones. IMPRESSION: Cholelithiasis without imaging evidence of acute cholecystitis. Stable 1 centimeter left lung base nodule. Nonemergent CT chest recommended for evaluation of entire chest. Stable renal lesions which were categorized as benign on previous MRI. Please see MRI report from 07/21/2022. Stable appearance of the bones may be secondary to osteopenia. Marrow infiltrative process should be ruled out. Please note that all CT scans at this facility use dose modulation, iterative reconstruction, and/or weight-based dosing when appropriate to reduce radiation dose to as low as reasonably achievable. Dictated by Jan Turcios MD @ 06/02/2023 10:44:43 AM (Electronically Signed)
== END 2023-06-02 08:09 | disposition home or self-care (01) ==
LOC: CT 08:08
PROVIDERS: PCP Internal Medicine; Visit Provider Internal Medicine
DX: E83.52 Hypercalcemia (principal); K80.20 Calculus of gallbladder without cholecystitis without obstruction; R91.8 Other nonspecific abnormal finding of lung field; Z86.73 Personal history of transient ischemic attack (TIA), and cerebral infarction without residual deficits
CPT/HCPCS: 74177; 80048; 80061; Q9967

== ENCOUNTER 2023-06-04 08:27 | Outpatient (CLI) | payer MEDICARE, SELFPAY ==
--- NOTE | 2023-06-04 09:00 | CRLHL7_ITS ---
For Patients: As a result of the Century Cures Act, medical imaging exams and procedure reports are released immediately into your electronic medical record. You may view this report before your referring provider. If you have questions, please contact your health care provider. INDICATION: Hypercalcemia. Pulmonary nodule. Follow-up. TECHNIQUE: Contrast-enhanced chest CT. 75 cc nonionic Isovue-370 administered. COMPARISON: Correlation is made with an abdominopelvic CT June 02, 2023. Comparison is made to a CT of the chest abdomen and pelvis July 18, 2022. Correlation is made with an MRI of the abdomen/kidneys July 21, 2022. FINDINGS: Stable subpleural 3 mm pulmonary nodule lateral right middle lobe of the lung image 45 series 3 when compared to July 18, 2022. Stable 4 mm subpleural pulmonary nodule left lung base, image 55 series 3. Stable 11 mm pulmonary nodule left lung base, image 54 series 3. Stable 2-3 mm pulmonary nodule left upper lobe anterior to the major fissure, image 37 series 3, present in retrospect July 18, 2022 image 47 series 3. No new pulmonary nodules. The stability would suggest a benign process however metastatic disease cannot be entirely excluded. A granulomatous process could be considered. There are no pleural or pericardial effusions. No focal pulmonary masses or infiltrates. The trachea and mainstem bronchi are patent and clear. Few mm low dense nodule anterior left thyroid lobe. No thoracic lymphadenopathy. The included breasts are unremarkable. No axillary or retrocrural or internal mammary chain lymphadenopathy. Cholelithiasis. Stable small low-attenuation nodule lateral limb left adrenal gland may reflect an adenoma measuring up to nearly 1 cm entirely unchanged. Again noted is a somewhat mottled appearance of the included skeleton particularly the spine. Differential diagnostic possibilities include osteopenia, metabolic bone disease, or even an infiltrative process. Please correlate clinically. There are 1 or 2 lower thoracic vertebral body cavernous hemangiomas. Subtle sclerotic focus left manubrium of the sternum unchanged. IMPRESSION : 1. Stable bilateral pulmonary nodules. Tiny pulmonary nodule subpleural lateral right middle lobe, tiny nodule left upper lobe near the major fissure, and 2 left lower lobe pulmonary nodules. The stability when compared to July 18, 2022 is reassuring but metastatic disease could still not be entirely excluded. 2. No pleural effusions. No thoracic lymphadenopathy. 3. Mottling of the skeleton particularly the thoracic spine and sternum seen previously and unchanged. Differential diagnostic possibility include osteopenia, an infiltrating process, or perhaps related to metabolic bone disease. Please note that all CT scans at this facility use dose modulation, iterative reconstruction, and/or weight-based dosing when appropriate to reduce radiation dose to as low as reasonably achievable. Dictated by Rayray Strickland MD @ 06/04/2023 10:20:02 AM (Electronically Signed)
== END 2023-06-04 08:28 | disposition home or self-care (01) ==
LOC: CT 08:29
PROVIDERS: PCP Internal Medicine; Visit Provider Internal Medicine
DX: E83.52 Hypercalcemia (principal); R91.8 Other nonspecific abnormal finding of lung field
CPT/HCPCS: 71260; Q9967

== ENCOUNTER 2023-06-29 07:44 | Outpatient (CLI) | payer MEDICARE, SELFPAY | END 2023-06-29 07:45 | disposition home or self-care (01) | LOC: NFLDREF 07-01 11:13 | PROVIDERS: PCP Internal Medicine; Referring Provider Internal Medicine; Visit Provider Internal Medicine | DX: E83.52 Hypercalcemia (principal) | CPT/HCPCS: 80048 ==

== ENCOUNTER 2023-07-09 07:45 | Outpatient (CLI) | payer MEDICARE, SELFPAY ==
--- NOTE | 2023-07-09 08:15 | CRLHL7_ITS ---
For Patients: As a result of the Century Cures Act, medical imaging exams and procedure reports are released immediately into your electronic medical record. You may view this report before your referring provider. If you have questions, please contact your health care provider. INDICATION: Hypercalcemia TECHNIQUE: 25.6 mCi [id number]-Ryijnmqhi administered intravenously followed by routine planer images of the neck performed immediately, at 90 minutes and at 3 hours. COMPARISON: CT chest 06/04/2023, 07/18/2022 FINDINGS: Physiologic uptake in the heart and salivary glands noted. Diffuse uptake within the thyroid gland including an ectopic thyroid nodule inferiorly, unchanged from prior studies. No delayed uptake to suggest parathyroid adenoma. IMPRESSION: Ectopic thyroid tissue inferior to the thyroid. No parathyroid adenoma. Dictated by Glynn Richardson MD @ 07/09/2023 12:25:06 PM (Electronically Signed)
== END 2023-07-09 07:46 | disposition home or self-care (01) ==
LOC: NM 07:46
PROVIDERS: PCP Internal Medicine; Visit Provider Internal Medicine
DX: E83.52 Hypercalcemia (principal)
CPT/HCPCS: 78070; A9500

== ENCOUNTER 2023-07-27 08:25 | Outpatient (CLI) | payer MEDICARE, SELFPAY | END 2023-07-27 08:26 | disposition home or self-care (01) | LOC: NFLDREF 07-28 19:52 | PROVIDERS: PCP Internal Medicine; Referring Provider Internal Medicine; Visit Provider Internal Medicine | DX: E83.52 Hypercalcemia (principal) | CPT/HCPCS: 80048 ==

== ENCOUNTER 2023-08-20 08:35 | Outpatient (CLI) | payer MEDICARE, SELFPAY | END 2023-08-20 08:36 | disposition home or self-care (01) | LOC: NFLDREF 08-21 12:01 | PROVIDERS: PCP Internal Medicine; Referring Provider Internal Medicine; Visit Provider Internal Medicine | DX: E83.52 Hypercalcemia (principal) | CPT/HCPCS: 80048 ==

== ENCOUNTER 2023-09-22 07:40 | Outpatient (CLI) | payer MEDICARE, SELFPAY | END 2023-09-22 07:41 | disposition home or self-care (01) | LOC: NFLDREF 13:12 | PROVIDERS: PCP Internal Medicine; Referring Provider Internal Medicine; Visit Provider Internal Medicine | DX: E83.52 Hypercalcemia (principal) | CPT/HCPCS: 80048 ==

== ENCOUNTER 2023-10-19 08:26 | Outpatient (CLI) | payer MEDICARE, SELFPAY | END 2023-10-19 08:27 | disposition home or self-care (01) | PROVIDERS: PCP Internal Medicine; Visit Provider Internal Medicine | DX: Z01.818 Encounter for other preprocedural examination (principal); E83.52 Hypercalcemia; Z79.899 Other long term (current) drug therapy | CPT/HCPCS: 80048; 80061 ==

== ENCOUNTER 2023-10-23 08:30 | Outpatient (RCR) | payer MEDICARE, SELFPAY ==
--- NOTE | 2023-04-27 15:13 | ONC.NURNOTE ---
Dx: Hypercalcemia. Cancer of unknown primary.
--- NOTE | 2023-04-28 10:50 | URNOTE ---
Received request for prior authorization for Zoledronic Acid (J3489). Per , this has been approved 04/27/2023 to 04/25/2024 (1 unit/dose). Auth #[id number].
[2023-05-01 07:54] VITALS: RESP 18; TEMP 36.7; O2SAT 97
[2023-05-01] MEDS: ZOLEDRONIC ACID 4 MG in 0.9 % SODIUM CHLORIDE 100 ml 100 ML 420 MG IVPB (08:41)
[2023-06-09 09:12] VITALS: BP 119/79; PULSE 68; RESP 16; TEMP 36.4; O2SAT 99
[2023-06-09] MEDS: ZOLEDRONIC ACID 4 MG in 0.9 % SODIUM CHLORIDE 100 ml 100 ML 420 MG IVPB (09:52)
[2023-07-03 08:00] VITALS: BP 114/78; PULSE 71; RESP 16; TEMP 36.1; O2SAT 97
[2023-07-03] MEDS: ZOLEDRONIC ACID 4 MG in 0.9 % SODIUM CHLORIDE 100 ml 100 ML 420 MG IVPB (08:32)
--- NOTE | 2023-07-03 11:24 | ONC.NURNOTE ---
[address] Andres re pts Creat of 2.0. requesting 1L NS. 1100 Kaitlyn, Dr. Noble nurse called back and faxed a order for 1l ns. pt. declined.
[2023-07-31 07:56] VITALS: BP 115/81; PULSE 71; RESP 16; TEMP 36.3; O2SAT 98
[2023-07-31] MEDS: ZOLEDRONIC ACID 4 MG in 0.9 % SODIUM CHLORIDE 100 ml 100 ML 420 MG IVPB (08:18)
[2023-07-31] MEDS: 0.9 % SODIUM CHLORIDE 250 ml IV (09:35)
[2023-07-31] MEDS: SODIUM CHLORIDE 0.9 % (FLUSH) 10 ML SYRINGE IVF (09:35)
[2023-08-27 08:00] VITALS: BP 130/87; PULSE 67; RESP 14; TEMP 36.1; O2SAT 98
[2023-08-27] MEDS: ZOLEDRONIC ACID 4 MG in 0.9 % SODIUM CHLORIDE 100 ml 100 ML 420 MG IVPB (08:21)
[2023-08-27] MEDS: 0.9 % SODIUM CHLORIDE 250 ml IV (08:21)
[2023-08-27] MEDS: SODIUM CHLORIDE 0.9 % (FLUSH) 10 ML SYRINGE IVF (08:22)
[2023-09-24 09:30] VITALS: BP 129/79; PULSE 76; RESP 16; TEMP 36.1; O2SAT 98
[2023-09-24] MEDS: ZOLEDRONIC ACID 4 MG in 0.9 % SODIUM CHLORIDE 100 ml 100 ML 420 MG IVPB (10:26)
[2023-09-24] MEDS: 0.9 % SODIUM CHLORIDE 250 ml IV (10:26)
[2023-09-24] MEDS: SODIUM CHLORIDE 0.9 % (FLUSH) 10 ML SYRINGE IVF (10:26)
[2023-10-23 08:38] VITALS: BP 135/87; PULSE 69; RESP 16; TEMP 36.3; O2SAT 98
[2023-10-23] MEDS: 0.9 % SODIUM CHLORIDE 250 ml IV (08:59)
[2023-10-23] MEDS: ZOLEDRONIC ACID 4 MG in 0.9 % SODIUM CHLORIDE 100 ml 100 ML 420 MG IVPB (08:59)
[2023-10-23] MEDS: SODIUM CHLORIDE 0.9 % (FLUSH) 10 ML SYRINGE IVF (09:00)
== END 2023-10-28 23:59 | disposition home or self-care (01) ==
LOC: CCIC 08:30
PROVIDERS: PCP Internal Medicine; Referring Provider Internal Medicine; Visit Provider Internal Medicine
DX: E83.52 Hypercalcemia (principal)
CPT/HCPCS: 96374; J3489; J7050

== ENCOUNTER 2024-06-08 07:42 | Outpatient (CLI) | payer MEDICARE, SELFPAY ==
--- OUTSIDE RECORDS SUMMARY | 2024-06-10 11:54 | XMS_ITS | Referral Summary ---
Author Organization [facility] Address [address] [place] [id number] Care Team Providers Care Hardware Engineering Manager Name Role Phone Helen Andres MD Primary Care Provider Esthela Cleaning MD Unavailable [phone] Allergies No known active allergies Medications Medication Sig Dispensed Refills Start Date End Date Status lisinopril (ZESTRIL) 20 MG tablet Take 10 mg by mouth daily 09/23/2023 Active simvastatin (ZOCOR) 10 MG tablet Take 10 mg by mouth daily 09/23/2023 Active aspirin (ASA) 81 MG chewable tabletIndications:S/P parathyroidectomy Take 1 tablet (81 mg) by mouth daily 11/10/2023 Active ibuprofen (ADVIL/MOTRIN) 200 MG tabletIndications:S/P parathyroidectomy Take 3 tablets (600 mg) by mouth every 6 hours as needed for moderate pain 11/10/2023 Active Social History Tobacco Use Types Packs/Day Years Used Date Smoking Tobacco: Never Smokeless Tobacco: Never Tobacco Cessation:Counseling Given: Yes Alcohol Use Standard Drinks/Week Comments Not Currently 0 (1 standard drink = 0.6 oz pur e alcohol) Adolescent Education Answer Date Record ed Getting School Help Needed Not on file 09/07 Sex and Gender Information Value Date Recorded Sex Assigned at Not on file Gender Identity Not on file Sexual Orientation Not on file Last Filed Vital Signs Vital Sign Reading Time Taken Comments Blood Pressure 124/92 11/27/2023 9:02 AM 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 Pulse 77 11/27/2023 9:02 AM 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 Temperature 37 ??C (98.6 ??F) 11/10/2023 11:34 AM 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 Respiratory Rate 16 11/27/2023 9:02 AM 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 Oxygen Saturation 98% 11/27/2023 9:02 AM [employer] 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 Inhaled Oxygen Concentration - - Weight 72.1 kg (159 lb) 11/27/2023 9:02 AM 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 Height 157.5 cm (5' 2) 11/27/2023 9:02 AM 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 Body Mass Index 29.08 11/27/2023 9:02 AM 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 Plan of Treatment Not on file Procedures Procedure Name Priority Date/Time Associated Diagnosis Comments GLUCOSE (EXTERNAL RESULT) Routine 10/19/2023 8:55 AM [employer] 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 LIPID PANEL (EXTERNAL RESULT) Routine 10/19/2023 8:55 AM 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 from Last 3 Months or Most Recently Relevant to Health Maintenance Results * Lipid Panel (External Result) (10/19/2023 8:55 AM [employer] 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) Cholesterol (External) 176 90 - 199 mg/dL [facility] HDL Cholesterol (External) 61 >=50 mg/dL [facility] LDL Cholesterol Calculated (External) 82 <100 mg/dL [facility] Blood 10/19/2023 8:55 AM [employer] 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 [facility] - 10/19/2023 8:55 AM READ[employer] 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 [facility] LAB RESULT Provider Outside LAB - HIM EXTERNAL R ESULT Performing Organization Address City/[facility]/ZIP Co de Phone Number [facility] [address] [place] [address], [facility] [phone] * Glucose (External Result) (10/19/2023 8:55 AM [employer] 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) Glucose (External) 96 60 - 115 mg/dL [facility] Blood 10/19/2023 8:55 AM [employer] 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 [facility] - 10/19/2023 8:55 AM [employer] 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 [facility] LAB RESULT Provider Outside LAB - HIM EXTERNAL R ESULT Performing Organization Address City/[facility]/ZIP Co de Phone Number [facility] [address] [place] [address], [facility] [phone] from Last 3 Months or Most Recently Relevant to Health Maintenance Care Teams Hardware Engineering Manager Relationship Specialty Start Date End Date Helen Andres MD [facility] [address] [place] [address] PCP - General Internal Medicine 09/16/23 Esthela Cleaning MD [facility] [address] [facility] [address] [place] [address] Assigned Surgical Provider 10/17/23
--- OUTSIDE RECORDS SUMMARY | 2024-06-10 11:54 | XMS_ITS | Clinical Summary ---
Author Organization [facility] Address [address] [place] [id number] Care Team Providers Care Well Service Floor Worker Name Role Phone Helen Andres MD Primary Care Provider [phone] Esthela Cleaning MD Unavailable [phone] Allergies No known active allergies Medications Medication [...] Comments Blood Pressure 124/92 11/27/2023 9:02 AM CALCULUS TEACHER Pulse 77 11/27/2023 9:02 AM CALCULUS TEACHER Temperature 37 ??C (98.6 ??F) 11/10/2023 11:34 AM CALCULUS TEACHER Respiratory Rate 16 11/27/2023 9:02 AM CALCULUS TEACHER Oxygen Saturation 98% 11/27/2023 9:02 AM CALCULUS TEACHER Inhaled Oxygen Concentration - - Weight 72.1 kg (159 lb) 11/27/2023 9:02 AM CALCULUS TEACHER Height 157.5 cm (5' 2) 11/27/2023 9:02 AM CALCULUS TEACHER Body Mass Index 29.08 11/27/2023 9:02 AM CALCULUS TEACHER Plan of Treatment Health Maintenance Due Date Last Done Comments ADVANCE CARE PLANNING 1955 ANNUAL REVIEW OF HM ORDERS 1955 CT COLONOGRAPHY 1955 DEXA 1955 FIT 1955 FLEX SIG 1955 MAMMO SCREENING 1955 sDNA (Cologuard) 1955 COLONOSCOPY 1965 COLORECTAL CANCER SCREENING 1965 HEPATITIS C SCREENING 1973 ZOSTER IMMUNIZATION (1 of 2) 2005 DTAP/TDAP/TD IMMUNIZATION (2 - Tdap) 03/26/2010 03/26/2000, 03/26/2000 RSV VACCINE (1 - 1-dose 60+ series) 2015 FALL RISK ASSESSMENT 2020 MEDICARE ANNUAL WELLNESS VISIT 2020 Pneumococcal Vaccine: 65+ Years (1 of 1 - PCV) 2020 COVID-19 Vaccine (4 - 2022-2 4 season) 2023 08/06/2022, 06/07/2021, 05/10/2021 PHQ-2 (once per calendar year) 2023 INFLUENZA VACCINE (#1) 2024 LIPID 10/19/2024 10/19/2023 GLUCOSE 10/19/2026 10/19/2023 HPV IMMUNIZATION Aged Out No longer e ligible based on patient's age to complete this topic MENINGITIS IMMUNIZATION Aged Out No l onger eligible based on patient's age to complete this topic RSV MONOCLONAL ANTIBODY Aged Out No l onger eligible based on patient's age to complete this topic Procedures Procedure Name Priority Date/Time Associated Diagnosis Comments GLUCOSE (EXTERNAL RESULT) Routine 10/19/2023 8:55 AM CALCULUS TEACHER LIPID PANEL (EXTERNAL RESULT) Routine 10/19/2023 8:55 AM CALCULUS TEACHER from Last 3 Months or Most Recently Relevant to Health Maintenance Results * Lipid Panel (External Result) (10/19/2023 8:55 AM CALCULUS TEACHER) Cholesterol (External) 176 90 - 199 mg/dL [facility] HDL Cholesterol (External) 61 >=50 mg/dL [facility] LDL Cholesterol Calculated (External) 82 <100 mg/dL [facility] Blood 10/19/2023 8:55 AM CALCULUS TEACHER [facility] - 10/19/2023 8:55 AM CALCULUS TEACHER [facility] RESULT Provider Outside LAB - HIM EXTERNAL R ESULT [facility] [address] [place] [address], [facility] [phone] * Glucose (External Result) (10/19/2023 8:55 AM CALCULUS TEACHER) Glucose (External) 96 60 - 115 mg/dL [facility] Blood 10/19/2023 8:55 AM CALCULUS TEACHER [facility] - 10/19/2023 8:55 AM CALCULUS TEACHER [facility] RESULT Provider Outside LAB - [facility] EXTERNAL R ESULT [facility] [address] [place] [address], [facility] [phone] from Last 3 Months or Most Recently Relevant to Health Maintenance Care Teams Well Service Floor Worker Relationship Specialty Start Date End Date Helen Andres MD [facility] [address] [place] [address] PCP - General Internal Medicine 09/16/23 Esthela Cleaning MD [facility] [address] [facility] [address] [place] [address] Assigned Surgical Provider 10/17/23
== END 2024-06-08 07:43 | disposition home or self-care (01) ==
LOC: NFLDREF 06-10 11:53
PROVIDERS: PCP Internal Medicine; Referring Provider Internal Medicine; Visit Provider Internal Medicine
DX: E83.52 Hypercalcemia (principal); E21.5 Disorder of parathyroid gland, unspecified
CPT/HCPCS: 80048; 83970

== ENCOUNTER 2024-11-28 08:47 | Outpatient (CLI) | payer MEDICARE, SELFPAY | END 2024-11-28 08:48 | disposition home or self-care (01) | PROVIDERS: PCP Internal Medicine; Visit Provider Internal Medicine | DX: E21.5 Disorder of parathyroid gland, unspecified (principal); I10 Essential (primary) hypertension; Z13.220 Encounter for screening for lipoid disorders | CPT/HCPCS: 80048; 80061; 82397; 83970 ==